=== PATIENT | female | born 1940 | race Caucasian/White ===

== ENCOUNTER 2019-08-27 10:38 | Outpatient (CLI) | payer MEDICARE, SELFPAY ==
--- NOTE | 2019-08-27 10:48 | DI.RAD_ITS ---
EXAM: XR FOOT RT COMPLETE INDICATION: FOOT HEEL PAIN [id number]. COMPARISON: No exams were available for comparison TECHNIQUE: 2D digital imaging was performed. FINDINGS: Three views were obtained. There deformity of the base of the 5th metatarsal consistent with partial ly healed or unhealed fracture. Please correlate clinically. There are minimal degenerative changes of the joints of the ankle midfoot and forefoot. No other significant abnormality seen. IMPRESSION:
--- NOTE | 2019-08-27 10:49 | DI.RAD_ITS ---
EXAM: XR WRIST RT COMPLETE INDICATION: WRIST JOINT PAIN [id number]. COMPARISON: No exams were available for comparison TECHNIQUE: 2D digital imaging was performed. FINDINGS: Three views were obtained. There is marked degenerative change at the greater multangular 1st metaca rpal joint. 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 Small degenerative c ysts are noted in the navicular and lunate. No other significant bony abnormality seen. IMPRESSION:
== END 2019-08-27 10:58 ==
PROVIDERS: PCP Family Medicine; Visit Provider Family Medicine
DX: M79.671 Pain in right foot (principal); M19.071 Primary osteoarthritis, right ankle and foot; M20.5X1 Other deformities of toe(s) (acquired), right foot; M25.531 Pain in right wrist; M19.031 Primary osteoarthritis, right wrist
CPT/HCPCS: 73110; 73630

== ENCOUNTER 2019-08-27 13:58 | Emergency (ER) | payer MEDICARE, SELFPAY ==
[2019-08-27 14:01] VITALS: BP 128/73; PULSE 100; RESP 16; TEMP 36.7; O2SAT 98
--- NOTE | 2019-08-27 14:19 | ED.GENADUL_ITS ---
Discharge Plan Disposition Patient Disposition: HOME Condition: Stable Discharge Details Chief Complaint: Orthopedic Clinical Impression: Fracture of fifth metatarsal bone of right foot Primary Care Provider: Hilario Fisher ED Provider: Prosper Cardoso Home Meds and New Rx's Prescriptions: Continued lisinopril 20 MG tablet 20 mg PO DAILY RF: 0 bpflvsyc-zrf-DY-lycopen-lutein [Centrum Silver] 1 EACH tablet 1 ea PO DAILY RF: 0 omega-3 fatty acids-fish oil [One-Per-Day [place]-3] 1 EACH capsule,delayed release(DR/EC) 1 ea PO DAILY RF: 0 naproxen 500 MG tablet 500 mg PO Q12H PRN RF: 0 Discharge Instructions Additional Instructions: Please follow-up with Luisito Woo in clinic for recheck in 1 to 2 weeks time. Call for an appointment. May remove the walking boot while in bed or for bathing. Wear when out of bed and upright. Return for worsening discomfort or any other acute concerns. May continue naproxen for pain. May use Tylenol if needed for breakthrough pain. Medical Decision Making 79-year-old female referred by outpatient clinic after she had an injury to her right foot yesterday and outpatient x-ray revealed deformity of the base of the 5th metatarsal consistent with partially healed or unhealed fracture. Will place an equalizer walking boot. She may follow-up with Ms. Luisito Woo in clinic for recheck. She is stable for discharge at this time. HPI General Mode of arrival: ambulatory . Date/Time Provider Initiated Documentation: 08/27/19 14:15 . Limitations to Documentation: no limitations . Information obtained by: patient . History of Present Illness 79 year old F presents to the emergency department with the chief complaint of Right foot pain after stepping off stool yesterday. Positive x-ray, described as mild, and is localized to the right and lower extremity. Patient reports no radiation. Patient started experiencing this hour(s) and it has been constant. Rest improves symptom(s), Movement worsens symptoms . Patient notes no other symp toms.. Patient did receive the following treatments prior to arrival, none Related Data Home Medications Medication Instructions Recorded Confirmed lisinopril 20 mg PO DAILY tab-cap 06/24/15 01/27/16 firfkdud-nwv-DR-lycopen-lutein 1 ea PO DAILY 06/24/15 01/27/16 [Centrum Silver] naproxen 500 mg PO Q12H PRN tab-cap 06/24/15 01/27/16 omega-3 fatty acids-fish oil 1 ea PO DAILY 06/24/15 01/27/16 [One-Per-Day [place]-3] Allergies Allergy/AdvReac Type Severity Reaction Status Date / Time Penicillins Allergy Intermediate Unverified 03/25/18 10:55 doxycycline monohydrate Allergy HIVES Unverified 03/25/18 10:55 [From Vibramycin] lactose AdvReac Mild GI upset Unverified 03/25/18 10:55 General Stated Complaint: Orthopedic SEBASTIAN: 4 Review of Systems Review of Systems Narrative: No other injury. Denies numbness or tingling. PFSH Social History Smoking/Tobacco Use Status: Never Drug use: Never Do you feel safe at home: Yes Do you feel safe in your relationship?: Yes Exam Narrative Exam Narrative: GEN: awake, alert, oriented 3. Pleasant, well groomed, interactive. HEAD: Normocephalic, atraumatic EXT: Full ROM, minimal tenderness right lateral foot. No significant ecchymosis. Neuro: Grossly normal neurologic exam, conversant, interactive. Psych: Speech fluent, thoughts congruent, affect normal Course Vital Signs Vital signs: Vital Signs Temperature 36.7 C 08/27/19 14:01 Pulse 100 H 08/27/19 14:01 Respiratory Rate 16 08/27/19 14:01 Blood Pressure 128/73 08/27/19 14:01 Pulse Oximetry 98 08/27/19 14:01 Temperature 36.7 C 08/27/19 14:01 Pulse 100 H 08/27/19 14:01 Respiratory Rate 16 08/27/19 14:01 Respiratory Effort Non-Labored 08/27/19 14:05 Blood Pressure 128/73 08/27/19 14:01 Blood Pressure Position Sitting 08/27/19 14:01 Pulse Oximetry 98 08/27/19 14:01 Oxygen Delivery Method Room Air 08/27/19 14:01 Oxygen Flow Rate 0 08/27/19 14:01 Pain Level 6 08/27/19 14:07
[2019-08-27 14:50] VITALS: BP 128/73; PULSE 100; RESP 16; TEMP 36.7; O2SAT 98
== END 2019-08-27 14:54 | disposition home or self-care (01) ==
LOC: ER 14:49
PROVIDERS: Emergency Provider Emergency Medicine; PCP Family Medicine
DX: S92.351A Displaced fracture of fifth metatarsal bone, right foot, initial encounter for closed fracture (principal); W01.0XXA Fall on same level from slipping, tripping and stumbling without subsequent striking against object, initial encounter; I10 Essential (primary) hypertension; M79.671 Pain in right foot; M19.071 Primary osteoarthritis, right ankle and foot; M20.5X1 Other deformities of toe(s) (acquired), right foot; M25.531 Pain in right wrist; M19.031 Primary osteoarthritis, right wrist
CPT/HCPCS: 29515; 99283; 73110; 73630; 99282; E0114; L4361

== ENCOUNTER 2019-09-13 21:24 | Inpatient (IN) | payer MEDICARE, SELFPAY ==
[2019-09-13] VITALS (10 sets, daily range): BP systolic 72–136; BP diastolic 40–79; PULSE 80–121; RESP 18–29; TEMP 38; O2SAT 94–98
--- NOTE | 2019-09-13 21:32 | DI.CT_ITS ---
EXAM: CT CHEST PE ABD PELVIS W CLINICAL HISTORY: right lower back/abd pain. TECHNIQUE: The examination was carried out according to the usual protocol with intravenous administ ration of 100 cc of Omnipaque 350.CT angiography was performed with multi slice acquisition and 3D re construction. COMPARISON: No exams were available for Comparison FINDINGS:: PE CHEST: No central pulmonary emboli are demonstrated with note made of motion artifacts limiting exclusion of peripheral pulmonary emboli. There is no evidence of a central or saddle embo teresa. There is no evidence of central lobar occlusive emboli. Segmental emboli cannot be entirely exc luded. There is no evidence of an aortic aneurysm or aortic dissection. No evidence of reflux of co ntrast material into the vena cava or hepatic veins to suggest right heart strain or pulmonary hypert ension. No pulmonary infiltrates are identified. Heterogeneous attenuation of pulmonary parenchyma is noted consistent with air trapping and underlying small airway disease. Note is also made of minim al bibasilar atelectasis. There is no evidence of a pneumothorax or pleural effusion. The heart is not enlarged. Calcification is noted in the mitral valve annulus. Also coronary artery calcification is seen. No evidence of lymphadenopathy. There is no acute bony abnormality. Soft tissues are unrem arkable. ABDOMEN AND PELVIC: Small calcifications in the liver would be consistent with old healed granulomato us disease. The liver is otherwise unremarkable. The gallbladder is normal. There are no stones. Mil d pancreatic atrophy is identified. Note is made of calcifications in the spleen consistent with old healed granulomatous disease. Adrenals are normal. Multiple cysts are identified in the right and left kidney. There are fluid-filled loops of small bowel with air fluid levels. There is mild bowel wall thickening. There is no evidence of obstruction. The findings may represent mild enteritis. Th ere is no evidence of an acute appendix. There is no evidence of free air or free fluid in the intra peritoneal space. There are mild atherosclerotic changes involving the aorta without evidence of aneu rysm. No acute bony abnormality is seen. There is no lymphadenopathy. Bladder wall thickening is id entified and is likely on the basis of suboptimal distension. Patient is status post hysterectomy. 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 The extr a-abdominal soft tissues appear unremarkable. IMPRESSION: PE CHEST: There is no evidence of pulmonary embolic disease. The appearance of the pulmonary parenchy ma is consistent with air trapping and small airway disease. ABDOMEN AND PELVIS: Findings suggesting the possibility of acute enteritis.
--- NOTE | 2019-09-13 21:36 | ED.GENADUL_ITS ---
Discharge Plan Disposition Patient Disposition: [facility] INPATIENT Condition: Stable Discharge Details Chief Complaint: Nk/Back Pain Clinical Impression: Enteritis, Dehydration, Sepsis, Right flank pain Primary Care Provider: Hilario Fisher ED Provider: Oneil Rojas Home Meds and New Rx's Prescriptions: No Action lisinopril 20 MG tablet 20 mg PO DAILY RF: 0 Centrum Silver 1 EACH tablet 1 ea PO DAILY RF: 0 One-Per-Day [place]-3 1 EACH capsule,delayed release(DR/EC) 1 ea PO DAILY RF: 0 naproxen 500 MG tablet 500 mg PO Q12H PRN RF: 0 azithromycin 250 mg Tablet 0 PO .COMPLEX RF: 0 Medical Decision Making This is an 79-year-old female with no significant past medical history except for recently fractured right foot, currently using a walking boot, as well as clinically treated pneumonia currently on azithromycin. She presents today for right lower flank and back pain. Symptoms began yesterday morning at 4 AM. She describes the pain is relatively sudden onset, achy stabbing in nature. No chest or abdominal pain otherwise. No neurovascular complaints, no clinical complaints or exam findings suggestive of cauda equina syndrome or other abnormalities. Exam is notably unremarkable however she is significantly tachycardic in the 120s. This certainly concerning in conjunction with her relatively undifferentiated exam findings. Differential is broad but includes urinary tract infection, pyelonephritis, kidney stone. However with her tachycardia and her suspected clinical pneumonia I am also concerned for potential PE versus dissection as she has been in a walking boot, and had a fracture. We will perform laboratory work-up evaluate for cardiac etiology, get a CT scan of the chest and abdomen, and reassess. We will gently rehydrate as well. Additionally the patient is febrile, certainly increasing the concern for potential infectious etiology. 1:43 AM Influenza negative, troponin normal, urinalysis is positive for nitrites, trace blood, however cell count is notably benign. TSH and lipase normal, proBNP normal. Electrolytes unremarkable. Mild white count 12.51, mildly elevated lactate at 1.5. CT PE study shows no evidence of PE or pneumonia. CT of the abdomen pelvis shows no signs of kidney stones, it does show notable enteritis, in conjunction with mild fat stranding. Slightly more concerning clinical picture of CT enteritis. After fluid bolus the patient's heart rate has notably improved from the 120s to low 100s. However with the patient's age, laboratory risk factors, persistent mild tachycardia, fever, and clinical and radiographic evidence of notable enteritis I do feel that patient would be best suited for admission. Because of her antibiotic allergies we will use Levaquin and Flagyl for treatment of this enteritis, which will also cover any significant urinary abnormality. I discussed this with the family and they are in agreement with the plan. Additionally the case was discussed with the hospitalist Dr. Agarwal, he agrees with the assessment and plan. Patient will be admitted. I have extensively reviewed the treatment plan with the patient. I have addressed all patient concerns at this time. I have also discussed the plan with the admitting physician and they agree with the current assessment and plan and have agreed to assume responsibility for the patient. All parties demonstrate verbal understanding and agreement with our assessment and plan at this time. FINDINGS: Pulmonary arteries: Motion artifact limits this study and the results are insufficient for definitive exclusion of peripheral pulmonary emboli beyond the first and second order pulmonary arterial branches. No central or saddle emboli noted. No evidence of central lobar occlusive emboli. Segmental emboli cannot be ruled out. No definitive pulmonary emboli identified. Aorta: No evidence of aortic dissection or aneurysmal dilatation. Inferior vena cava: No evidence of reflux of contrast into the inferior vena cava or hepatic veins to suggest right heart strain or pulmonary hypertension. Lungs: There is heterogeneous attenuation of the pulmonary parenchyma, consistent with air trapping from underlying small airways disease. There is minimal bibasilar atelectasis. Pleural space: There is no evidence of pneumothorax. There are no pleural effusions present. Heart: There is calcification of the cardiac mitral valve annulus. There is mild atherosclerotic calcification of the coronary arteries. The heart is mildly enlarged. Lymph nodes: Unremarkable. No enlarged lymph nodes. Bones/joints: The skeletal structures and soft tissues show no evidence of fracture or other acute processes. Mild degenerative changes of the thoracic spine. Soft tissues: The soft tissues of the extrathoracic region are unremarkable. Other findings: Please see CT of the abdomen and pelvis. IMPRESSION: 1. There is heterogeneous attenuation of the pulmonary parenchyma, consistent with air trapping from underlying small airways disease. 2. No evidence of pulmonary embolism FINDINGS: Liver: Small calcification seen within the liver consistent with old granulomatous exposure. There are otherwise no focal liver lesions present. Gallbladder and bile ducts: Normal. No calcified stones. No ductal dilation. Pancreas: Moderate pancreatic atrophy present. No evidence of pancreatic masses. Spleen: Calcifications within the splenic parenchyma consistent with old granulomatous exposure. Spleen is otherwise normal. Adrenals: The adrenal glands are normal. Kidneys and ureters: Probable simple cysts seen within the left and right kidney. Stomach and bowel: There are fluid-filled loops of small bowel with air-fluid levels. There is mild bowel wall thickening and inflammatory changes. No evidence of obstruction. Findings are consistent with mild acute enteritis. Appendix: A normal appendix is identified. There is no evidence of distention or periappendiceal inflammation to suggest appendicitis. Intraperitoneal space: Unremarkable. No free air. No significant fluid collection. Vasculature: The aorta demonstrates mild atherosclerotic calcification. The abdominal aorta and iliac arteries are tortuous which may represent long-standing hypertension.The skeletal structures and soft tissues show no evidence of fracture or other acute processes. Lymph nodes: Unremarkable. No enlarged lymph nodes. Bladder: There is nonspecific bladder wall thickening. This may be related to incomplete bladder filling. Reproductive: There has been a hysterectomy. No adnexal cysts or masses are identified. Bones/joints: The lumbar spine demonstrates moderate degenerative changes. There are moderate degenerative changes of the sacroiliac joints. There are mild degenerative changes of the hip joints. Soft tissues: The extra-abdominal soft tissues are normal. IMPRESSION: Findings are consistent with mild acute enteritis. Thank you for allowing us to participate in the care of your patient. Dictated and Authenticated by: Jayro Galan MD 09/14/2019 12:35 AM Eastern Time ([place] & [place]) EKG 21: 45 Rate 118, interpretation is atrial flutter, however review of EKG appears to demonstrate sinus tachycardia rather than a flutter. NE interval appears to be slightly prolonged. QT 356, QRS 94. No significant ST elevations or depression, no evidence of STEMI. Inverted T waves are present in lead III. Nonspecific T wave flattening in aVF. HPI General Date/Time Provider Initiated Documentation: 09/13/19 21:35 . HPI Narrative: This is an 79-year-old female with no significant past medical history aside for a recent fracture of her right lower foot a few weeks ago, she has been in a walking boot for the past 2 weeks because of this. Additionally she was recently prescribed azithromycin within the last week for treatment of suspected clinical pneumonia in the right lower lung field. She presents today for evaluation of right lower back/flank pain. Patient states that the pain began at 4 AM yesterday morning she developed relatively sudden sharp achiness in the right flank and right lower abdomen. She has had no associated vomiting or diarrhea. She denies any urinary symptoms of hematuria, frequency, or dysuria. She denies any history of kidney stones. She denies any complaint of vaginal discharge, saddle anesthesia, numbness or tingling in the groin, radiation to her legs, bowel or bladder incontinence. She does admit to a productive cough, as well as minimal shortness of breath but she denies any chest tightness, tearing sensation in her chest, or other complaints. She denies any history of cardiac disease. She denies any history of PE. She denies any estrogen use, recent foreign travel or long trips. No other complaints. No other modifying factors. Of note she has been taking the azithromycin for treatment of a clinically diagnosed pneumonia few days ago. Related Data Home Medications Medication Instructions Recorded Confirmed Centrum Silver 1 ea PO DAILY 06/24/15 09/13/19 One-Per-Day [place]-3 1 ea PO DAILY 06/24/15 09/13/19 lisinopril 20 mg PO DAILY tab-cap 06/24/15 09/13/19 naproxen 500 mg PO Q12H PRN tab-cap 06/24/15 09/13/19 azithromycin 0 PO .COMPLEX 09/14/19 Allergies Allergy/AdvReac Type Severity Reaction Status Date / Time Penicillins Allergy Intermediate Unverified 03/25/18 10:55 doxycycline monohydrate Allergy HIVES Unverified 03/25/18 10:55 [From Vibramycin] lactose AdvReac Mild GI upset Unverified 03/25/18 10:55 General SEBASTIAN: 4 Review of Systems Review of Systems ROS Unobtainable: All systems reviewed & are unremarkable except as noted in HPI and below PFSH Social History Smoking/Tobacco Use Status: Never Alcohol Intake: never Drug use: Never Do you feel safe at home: Yes Do you feel safe in your relationship?: Yes Exam Narrative Exam Narrative: 1.Const: Well-nourished, Well-developed, appearing stated age 2.Eyes: PERRL, no conjunctival injection, and symmetrical lids. 3.ENT: Atraumatic external nose and ears. Moist MM. Neck: Symmetric, trachea midline, No thyromegaly. 4.CVS: +S1/S2, No murmurs or gallops. Peripheral pulses 2+ and equal in all extremities. Brisk capillary refill in all extremities. 5.RESP: Unlabored respiratory effort. Clear to auscultation bilaterally. No wheezes rales or rhonchi 6.GI: Soft, Nontender/Nondistended, No hepatosplenomegaly. No guarding or rebound. Minimal tenderness over the right flank, 7.MSK: Normocephalic/Atraumatic, Extremities w/o deformity or ttp No cyanosis or clubbing, Normal movement of all extremities. No midline tenderness to palpation over the CTLS spine. Normal ROM in flexion, extension, side bend, and rotation. Patient has +5 out of 5 strength in the lower extremities in dorsiflexion and plantarflexion, knee flexion and extension, hip flexion and extension. There is +2 over 2 dorsalis pedis pulses bilaterally. There is normal sensation to the skin with light touch at the foot, knee, and hip. Normal saddle sensation. Good sensation over the deep sural nerve area bilaterally. Rectal exam demonstrated normal rectal tone, normal perirectal sensation. Reflexes normal. +5 out of 5 strength in the medial, ulnar, radial nerve distribution bilaterally in the hands as well as intact light touch sensation to these dermatomes on the hands. No tenderness over the previously fractured foot bones. 8.Skin: Warm, Dry. No rashes or lesions. 9.Neuro: cloth roll winder II-XII grossly intact. Sensation grossly intact, no focal neurologic deficits. 10.Psych: (AAO) x3. Appropriate mood and affect Course Lab/Test Results Lab/Test Results: 09/13/19 21:32 Blood Blood Culture - Pending 09/13/19 21:32 Blood Blood Culture - Pending
[2019-09-13] MEDS: Ondansetron 4 MG/2 ML VIAL IVP (22:03)
[2019-09-13] MEDS: Acetaminophen 500 MG TAB 1000 MG PO (22:03)
[2019-09-13] MEDS: Normal Saline 1,000 ML 1000 ML IV (22:04)
--- NOTE | 2019-09-13 22:05 | NUR.NOTE ---
#20 LAC, labs drawn. NS infusing. Med with zofran and tylenol a/o. Pt declined morphine that'll send me to the [place]. states pain in foot has been relieved with tylenol.
[2019-09-13 22:25] LABS: Lactate 1.5 mmol/L (0.6-1.4)
[2019-09-13 22:29] LABS: Abs Immature Grans 0.03 k/cumm (0.0-0.09); Absolute Basophil Count 0.03 k/cumm (0.0-0.2); Absolute Eosinophil Count 0.09 k/cumm (0.0-0.7); Absolute Lymphocyte Count 1.55 k/cumm (1.2-3.4); Absolute Monocyte Count 1.25 k/cumm (0.11-0.7); Absolute Neutrophil Count 9.57 k/cumm (1.2-6.7); Basophils % 0.2; Eosinophils % 0.7; HCT 37.4 % (36.0-46.0); HGB 12.3 g/dL (12.0-15.5); Immature Grans % 0.2; Lymphocytes % 12.4; Mean Corp. HGB Concentration 32.9 g/dL (32.0-36.0); Mean Corpuscular Hemoglobin 29.9 pg (27.0-33.0); Mean Corpuscular Volume 90.8 fL (80-95); Mean Platelet Volume 9.7 fL (8.0-11.0); Neutrophils % 76.5; Platelet Count 357 x1000/uL (130-400); RBC 4.12 m/cumm (4.00-5.20); RBC Distribution Width 12.3 % (11.7-14.6); White Blood Cell Count 12.51 k/cumm (4.4-10.8)
[2019-09-13 22:40] LABS: PTT Activated 30.3 sec (21.0-31.4); Prothrombin Time 10.4 sec (9.3-11.0)
[2019-09-13 22:49] LABS: ALT 17 U/L (14-59); AST 12 U/L (15-37); Albumin 3.3 g/dL (3.4-5.0); Alkaline Phosphatase 86 U/L (46-116); BUN 28 mg/dL (7-18); Bilirubin, Total 0.5 mg/dL (0.2-1.0); CREATININE 1.14 mg/dL (0.55-1.02); Calcium 9.2 mg/dL (8.5-10.1); Chloride 102 mmol/L (98-107); Estimated GFR 45.75 (mL/min/1.73m2); Glucose 125 mg/dL (70-100); Lipase 106 U/L (73-393); NT-proBNP 206 pg/mL; Potassium 5.1 mmol/L (3.5-5.1); Sodium 139 mmol/L (136-145); TSH (W/Ref FT4) 2.05 uIU/mL (0.36-3.74); Total Protein 7.8 g/dL (6.4-8.2)
[2019-09-13 22:51] LABS: Troponin I < 0.05 ng/mL (0.00-0.06)
[2019-09-13 22:51] LABS: Bilirubin Negative (Negative); Blood Trace-intact (Negative); Clarity Clear (Clear); Glucose Negative (Negative); Ketones Negative (Negative); Leukocyte Esterase Negative (Negative); Nitrite Positive (Negative); Urobilinogen 0.2 EU/dL (Up TO 0.2); pH 5.5 (5-8)
--- NOTE | 2019-09-13 22:51 | NUR.NOTE ---
BIBA from home with c/o right low back pain that woke her at 0400. non-radiating. reports as burning pain. Recent hx of right foot fx, and dx with PNA on 09/11, taking azithromycin. pt reports temp to 100.0 at home, no tylenol or motrin. ST on monitor 120's. denies CP, SOB. pt reports abd cramping. denies N/V. #20 LAC, labs drawn. Straight cath for urine spec, approx 250mL out, pt abel well.
[2019-09-13 23:04] LABS: Epithelial Cells Negative HPF (Negative); RBC 0-2 (0-2); WBC 0-2 HPF (0-5)
[2019-09-13 23:05] LABS: Bacteria Many HPF (Negative); C & S Indicated? C&S Done As Ordered; Casts Negative LPF (Negative); Crystals Negative HPF (Negative); Mucus Negative (Negative)
[2019-09-14] VITALS (20 sets, daily range): BP systolic 105–159; BP diastolic 60–99; PULSE 82–116; RESP 16–27; TEMP 36.5–37.1; O2SAT 94–99
--- NOTE | 2019-09-14 00:36 | DI.VRAD_ITS ---
Addendum created by Jayro Galan MD on 09/14/2019 12:55:24 AM EDT THIS REPORT CONTAINS FINDINGS THAT MAY BE CRITICAL TO PATIENT CARE. The findings were verbally communicated via telephone conference with BIJU JO at 12:55 AM EDT on 09/14/2019. The findings were acknowledged and understood. Initial report created on 09/14/2019 12:35:56 AM EDT PROCEDURE INFORMATION: Exam: CT Angiography Chest With Contrast Exam date and time: 09/13/2019 11:39 PM Clinical history: 79 years old, female; Abdominal pain; Flank; Right TECHNIQUE: Imaging protocol: Computed tomographic angiography of the chest with intravenous contrast. COMPARISON: CR CHEST 2 VIEWS PA,LAT 05/27/2013 9:31 AM FINDINGS: Pulmonary arteries: Motion artifact limits this study and the results are insufficient for definitive exclusion of peripheral pulmonary emboli beyond the first and second order pulmonary arterial branches. No central or saddle emboli noted. No evidence of central lobar occlusive emboli. Segmental emboli cannot be ruled out. No definitive pulmonary emboli identified. Aorta: No evidence of aortic dissection or aneurysmal dilatation. Inferior vena cava: No evidence of reflux of contrast into the inferior vena cava or hepatic veins to suggest right heart strain or pulmonary hypertension. Lungs: There is heterogeneous attenuation of the pulmonary parenchyma, consistent with air trapping from underlying small airways disease. There is minimal bibasilar atelectasis. Pleural space: There is no evidence of pneumothorax. There are no pleural effusions present. Heart: There is calcification of the cardiac mitral valve annulus. There is mild atherosclerotic calcification of the coronary arteries. The heart is mildly enlarged. Lymph nodes: Unremarkable. No enlarged lymph nodes. Bones/joints: The skeletal structures and soft tissues show no evidence of fracture or other acute processes. Mild degenerative changes of the thoracic spine. Soft tissues: The soft tissues of the extrathoracic region are unremarkable. Other findings: Please see CT of the abdomen and pelvis. IMPRESSION: 1. There is heterogeneous attenuation of the pulmonary parenchyma, consistent with air trapping from underlying small airways disease. 2. No evidence of pulmonary embolism PROCEDURE INFORMATION: Exam: CT Abdomen And Pelvis With Contrast Exam date and time: 09/13/2019 11:39 PM Clinical history: 79 years old, female; Abdominal pain; Flank; Right TECHNIQUE: Imaging protocol: Computed tomography of the abdomen and pelvis with intravenous contrast. Contrast material: OMN 350; Contrast volume: 100 ml; Contrast route: L AC; COMPARISON: CR CHEST 2 VIEWS PA,LAT 05/27/2013 9:31 AM FINDINGS: Liver: Small calcification seen within the liver consistent with old granulomatous exposure. There are otherwise no focal liver lesions present. Gallbladder and bile ducts: Normal. No calcified stones. No ductal dilation. Pancreas: Moderate pancreatic atrophy present. No evidence of pancreatic masses. Spleen: Calcifications within the splenic parenchyma consistent with old granulomatous exposure. Spleen is otherwise normal. Adrenals: The adrenal glands are normal. Kidneys and ureters: Probable simple cysts seen within the left and right kidney. Stomach and bowel: There are fluid-filled loops of small bowel with air-fluid levels. There is mild bowel wall thickening and inflammatory changes. No evidence of obstruction. Findings are consistent with mild acute enteritis. Appendix: A normal appendix is identified. There is no evidence of distention or periappendiceal inflammation to suggest appendicitis. Intraperitoneal space: Unremarkable. No free air. No significant fluid collection. Vasculature: The aorta demonstrates mild atherosclerotic calcification. The abdominal aorta and iliac arteries are tortuous which may represent long-standing hypertension.The skeletal structures and soft tissues show no evidence of fracture or other acute processes. Lymph nodes: Unremarkable. No enlarged lymph nodes. Bladder: There is nonspecific bladder wall thickening. This may be related to incomplete bladder filling. Reproductive: There has been a hysterectomy. No adnexal cysts or masses are identified. Bones/joints: The lumbar spine demonstrates moderate degenerative changes. There are moderate degenerative changes of the sacroiliac joints. There are mild degenerative changes of the hip joints. Soft tissues: The extra-abdominal soft tissues are normal. IMPRESSION: Findings are consistent with mild acute enteritis. Dictated and Authenticated by: Jayro Galan MD. Ordering:PITA Riggs MD
[2019-09-14] MEDS: Lidocaine 5% Patch 1 PATCH TP ×2 (00:42→18:18)
[2019-09-14] MEDS: levoFLOXacin 750 MG/150 ML BAG 100 MG IVPB (00:42)
[2019-09-14] MEDS: Normal Saline 1,000 ML 1000 ML IV (00:45)
[2019-09-14 01:05] LABS: Troponin I < 0.05 ng/mL (0.00-0.06)
--- NOTE | 2019-09-14 01:07 | HPE_ITS ---
Date of service: 09/14/19 Time of Service: 01:08 Assessment and Plan Assessment and plan (1) Right low back pain: Start date: 09/13/19 Status: Acute Assessment and plan: This is a generally healthy 79-year-old lady who recently fractured her right foot and now presents with right low back pain of acute onset needing help moving around at home. She is a right hip pain but on exam this was present. She has a fever and white count with only imaging done in the ED of the chest and abdomen revealing mild enteritis. She was covered with Levaquin because of her urine also possibly an infected and urine culture is pending. He was also given a dose of Flagyl which is not needed with her review of history and imaging. She may not need any antibiotics at all once further evaluation is done with imaging of her hip and back to be performed in the morning. Her pain was not associate with her abdomen or flank. She had no significant presentation of GI or complaints. Qualifiers: Chronicity: acute Sciatica presence: without sciatica Qualified Code(s): M54.5 - Low back pain (2) Right hip pain: Start date: 09/13/19 Status: Acute Assessment and plan: The patient's hip pain was not addressed in the ED because of her complaints of back pain and concentration for possible infectious etiologies diverting the ED physician's attention. This will be imaged in the morning and evaluated by PT. There is no injury but she did have an abnormal gait with a recent right foot fracture and walking boot. (3) Dehydration: Start date: 09/13/19 Status: Acute Assessment and plan: Patient was tachycardic in the ED with mild elevation of her creatinine and she did respond to IV hydration which will be continued. May be secondary to stress from her back pain. (4) Enteritis: Start date: 09/13/19 Status: Acute Assessment and plan: On CT scan of the abdomen the patient did have mild enteritis this may not be contributing to her fever, white blood cell count elevation or presentation. She was given Levaquin will cover possible UTI and question of her recent pneumonia though this was a clinical diagnosis because of her back pain. She had less severe back pain at the time she was seen by her outpatient physician and this did worsen just prior to presentation. He will be on bowel rest with IV hydration this be further evaluated if she progresses with abdominal symptoms. 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 She has had a right kn ee replaced recently and also more recently fractured her right foot by miss stepping on some stairs in the barn. This occurred several weeks ago and she has been walking in a walking boot outside but has been weaned off of this in the house. Over the last day prior to admission she had a sudden onset of right low back pain and with further questioning is hurting over her right hip with movement. We should return to the ED she was mostly in pain with tachycardia and appeared to be slightly dehydrated also had a low-grade fever. Evaluation did not include x-rays of her back or hip but CT scan of the abdomen and chest did not reveal any pneumonia, pulmonary embolus or significant abdominal findings other than mild enteritis. She was started on Levaquin and given 1 dose of Flagyl with a question of enteritis being more significant with her fever and elevated white count. She is allergic to doxycycline and Bactrim would be contraindicated with her lisinopril. She did not have any diarrhea or symptoms of enteritis other than mild nausea which may have been associate with her pain. When I interviewed the patient was quite talkative but had no other new focalizing complaints other than her back pain. In the ED she did have tachycardia which resolved with pain control and IV hydration and she had a mild fever with elevated white blood cell count. She also had an elevated lactate. She was admitted for IV Levaquin and further evaluation for infectious etiologies as well as further evaluation of her acute back pain which was sudden onset but may be associate with a recent fractured foot and change in gait with her previous right TKA. Review of Systems Review of Systems Narrative: 13 point review of systems otherwise unrevealing or stable. 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 [facility] Social History Smoking/Tobacco Use Status: Never Alcohol Intake: never Drug use: Never Do you feel safe at home: Yes Do you feel safe in your relationship?: Yes Meds Home Medications and Allergies Home Medications Medication Instructions Recorded Confirmed Type Centrum Silver 1 ea PO DAILY 06/24/15 09/13/19 History One-Per-Day [place]-3 1 ea PO DAILY 06/24/15 09/13/19 History lisinopril 20 mg PO DAILY tab-cap 06/24/15 09/13/19 History naproxen 500 mg PO Q12H PRN tab-cap 06/24/15 09/13/19 History azithromycin 0 PO .COMPLEX 09/14/19 History Allergies Allergy/AdvReac Type Severity Reaction Status Date / Time Penicillins Allergy Intermediate Unverified 03/25/18 10:55 doxycycline monohydrate Allergy HIVES Unverified 03/25/18 10:55 [From Vibramycin] lactose AdvReac Mild GI upset Unverified 03/25/18 10:55 Exam Narrative Exam Narrative: General: Obese, very talkative and alert and oriented x3. She is in no acute distress. She does have some distress when trying to move such as set up in bed. HEENT: Normocephalic with eyes normal revealing pupils equal and reactive light symmetrically and sclera anicteric. Extraocular movement intact. Oropharynx with slightly dry oral mucosa. Neck: Supple without JVD. Lungs: Clear to auscultation percussion. Heart: Regular rate and rhythm with no murmurs appreciated. Breast: Exam deferred. Back: Palpation of the right lower back increased muscle spasm and tenderness of the spine as well as the SI joint area no fluctuance, increased warmth to touch or erythema. Marked decreased range of motion of her back with stooped posture. No true CVA tenderness. Abdomen: Obese contour, soft and nontender to palpation with no palpable hepatosplenomegaly. Bowel sounds positive. Genitalia/Rectal: Exam deferred. Extremities: Obese with nonpitting edema, diffuse osteophytic changes with well- healed scar over the extensor surface of her right knee, right foot without swelling or focal tenderness, right hip with tenderness to any rotational movement and less so to flexion. No clubbing or cyanosis. Peripheral pulses decreased but intact. Neuro: Cranial nerves II through XII grossly intact, no focalizing motor de ficits. Skin: Pale, warm and dry. Psych: Slightly anxious with pressured speech but normal affect with normal variation in good eye contact. Memory appears intact. Results Imaging Imaging Studies: Exam(s) Addendum created by Jayro Galan MD on 09/14/2019 12:55:24 AM EDT THIS REPORT CONTAINS FINDINGS THAT MAY BE CRITICAL TO PATIENT CARE. The findings were verbally communicated via telephone conference with BIJU JO at 12:55 AM EDT on 09/14/2019. The findings were acknowledged and understood. Initial report created on 09/14/2019 12:35:56 AM EDT PROCEDURE INFORMATION: Exam: CT Angiography Chest With Contrast Exam date and time: 09/13/2019 11:39 PM Clinical history: 79 years old, female; Abdominal pain; Flank; Right TECHNIQUE: Imaging protocol: Computed tomographic angiography of the chest with intravenous contrast. COMPARISON: CR CHEST 2 VIEWS PA,LAT 05/27/2013 9:31 AM FINDINGS: Pulmonary arteries: Motion artifact limits this study and the results are insufficient for definitive exclusion of peripheral pulmonary emboli beyond the first and second order pulmonary arterial branches. No central or saddle emboli noted. No evidence of central lobar occlusive emboli. Segmental emboli cannot be ruled out. No definitive pulmonary emboli identified. Aorta: No evidence of aortic dissection or aneurysmal dilatation. Inferior vena cava: No evidence of reflux of contrast into the inferior vena cava or hepatic veins to suggest right heart strain or pulmonary hypertension. Lungs: There is heterogeneous attenuation of the pulmonary parenchyma, consistent with air trapping from underlying small airways disease. There is minimal bibasilar atelectasis. Pleural space: There is no evidence of pneumothorax. There are no pleural effusions present. Heart: There is calcification of the cardiac mitral valve annulus. There is mild atherosclerotic calcification of the coronary arteries. The heart is mildly enlarged. Lymph nodes: Unremarkable. No enlarged lymph nodes. Bones/joints: The skeletal structures and soft tissues show no evidence of fracture or other acute processes. Mild degenerative changes of the thoracic spine. Soft tissues: The soft tissues of the extrathoracic region are unremarkable. Other findings: Please see CT of the abdomen and pelvis. IMPRESSION: 1. There is heterogeneous attenuation of the pulmonary parenchyma, consistent with air trapping from underlying small airways disease. 2. No evidence of pulmonary embolism PROCEDURE INFORMATION: Exam: CT Abdomen And Pelvis With Contrast Exam date and time: 09/13/2019 11:39 PM Clinical history: 79 years old, female; Abdominal pain; Flank; Right TECHNIQUE: Imaging protocol: Computed tomography of the abdomen and pelvis with intravenous contrast. Contrast material: OMN 350; Contrast volume: 100 ml; Contrast route: L AC; COMPARISON: CR CHEST 2 VIEWS PA,LAT 05/27/2013 9:31 AM FINDINGS: Liver: Small calcification seen within the liver consistent with old granulomatous exposure. There are otherwise no focal liver lesions present. Gallbladder and bile ducts: Normal. No calcified stones. No ductal dilation. Pancreas: Moderate pancreatic atrophy present. No evidence of pancreatic masses. Spleen: Calcifications within the splenic parenchyma consistent with old granulomatous exposure. Spleen is otherwise normal. Adrenals: The adrenal glands are normal. Kidneys and ureters: Probable simple cysts seen within the left and right kidney. Stomach and bowel: There are fluid-filled loops of small bowel with air-fluid levels. There is mild bowel wall thickening and inflammatory changes. No evidence of obstruction. Findings are consistent with mild acute enteritis. Appendix: A normal appendix is identified. There is no evidence of distention or periappendiceal inflammation to suggest appendicitis. Intraperitoneal space: Unremarkable. No free air. No significant fluid collection. Vasculature: The aorta demonstrates mild atherosclerotic calcification. The abdominal aorta and iliac arteries are tortuous which may represent long-standing hypertension.The skeletal structures and soft tissues show no evidence of fracture or other acute processes. Lymph nodes: Unremarkable. No enlarged lymph nodes. Bladder: There is nonspecific bladder wall thickening. This may be related to incomplete bladder filling. Reproductive: There has been a hysterectomy. No adnexal cysts or masses are identified. Bones/joints: The lumbar spine demonstrates moderate degenerative changes. There are moderate degenerative changes of the sacroiliac joints. There are mild degenerative changes of the hip joints. Soft tissues: The extra-abdominal soft tissues are normal. IMPRESSION: Findings are consistent with mild acute enteritis. Dictated and Authenticated by: Jayro Galan MD Labs Result diagrams: 09/13/19 21:54 09/13/19 21:54 Labs: Laboratory Results - last 24 hr 09/13/19 09/13/19 09/13/19 21:54 21:54 21:54 WBC 12.51 H RBC 4.12 Hgb 12.3 Hct 37.4 MCV 90.8 MCH 29.9 MCHC 32.9 RDW 12.3 Plt Count 357 MPV 9.7 Immature Gran % 0.2 Neutrophils % 76.5 Lymphocytes % 12.4 Monocytes % 10.0 Eosinophils % 0.7 Basophils % 0.2 Absolute Neutrophils 9.57 H Absolute Lymphocytes 1.55 Absolute Monocytes 1.25 H Absolute Eosinophils 0.09 Absolute Basophils 0.03 PT INR APTT Sodium 139 Potassium 5.1 Chloride 102 Carbon Dioxide 28.0 Anion Gap 9.0 BUN 28 H Creatinine 1.14 H Estimated GFR/1.73 m2 45.75 Glucose 125 H Lactate 1.5 H Calcium 9.2 Total Bilirubin 0.5 AST 12 L ALT 17 Alkaline Phosphatase 86 Troponin I < 0.05 NT-Pro-B Natriuret Pep 206 Total Protein 7.8 Albumin 3.3 L Lipase 106 TSH 2.05 Urine Color Urine Clarity Urine pH Ur Specific [place] Urine Protein Urine Ketones Urine Blood Urine Nitrite Urine Bilirubin Urine Urobilinogen Ur Leukocyte Esterase Urine RBC Urine WBC Ur Epithelial Cells Urine Crystals Urine Bacteria Urine Casts Urine Mucus Ur Culture Indicated? Urine Glucose 09/13/19 09/13/19 09/14/19 21:54 22:45 00:30 WBC RBC Hgb Hct MCV MCH MCHC RDW Plt Count MPV Immature Gran % Neutrophils % Lymphocytes % Monocytes % Eosinophils % Basophils % Absolute Neutrophils Absolute Lymphocytes Absolute Monocytes Absolute Eosinophils Absolute Basophils PT 10.4 INR 1.0 APTT 30.3 Sodium Potassium Chloride Carbon Dioxide Anion Gap BUN Creatinine Estimated GFR/1.73 m2 Glucose Lactate Calcium Total Bilirubin AST ALT Alkaline Phosphatase Troponin I < 0.05 NT-Pro-B Natriuret Pep Total Protein Albumin Lipase TSH Urine Color Yellow Urine Clarity Clear Urine pH 5.5 Ur Specific [place] 1.020 Urine Protein Negative Urine Ketones Negative Urine Blood Trace-intact H Urine Nitrite Positive H Urine Bilirubin Negative Urine Urobilinogen 0.2 Ur Leukocyte Esterase Negative Urine RBC 0-2 Urine WBC 0-2 Ur Epithelial Cells Negative Urine Crystals Negative Urine Bacteria Many Urine Casts Negative Urine Mucus Negative Ur Culture Indicated? C&s done as ordered Urine Glucose Negative Last Vital Signs Temp 37.1 C 09/14/19 00:56 Pulse 107 H 09/14/19 00:56 Resp 20 09/14/19 00:56 BP 111/65 09/14/19 00:56 Pulse Ox 97 09/14/19 00:56
--- NOTE | 2019-09-14 01:25 | NUR.NOTE ---
IV removed. discharge instructions reviewed with verbal understanding. aware to f/u with pcp as needed. scripts given. Ambulated to exit with steady gait.
--- NOTE | 2019-09-14 01:46 | NUR.NOTE ---
Report to Radha in ICU. Aware pt has had levaquin and needs flagyl.
[2019-09-14] MEDS: Normal Saline 1,000 ML 150 ML IV ×2 (02:36→13:42)
[2019-09-14] MEDS: Heparin 5,000 UNITS/ML VIAL 5000 UNITS SC ×3 (02:51→22:26)
[2019-09-14] MEDS: metroNIDAZOLE 500 MG/100 ML BAG 100 MG IVPB (02:51)
[2019-09-14] MEDS: Omnipaque 350 MG/ML 100 ML BTL IJ (06:32)
[2019-09-14] MEDS: Lisinopril 20 MG TAB PO (07:58)
--- NOTE | 2019-09-14 08:00 | DI.RAD_ITS ---
EXAM: XR LUMBAR SPINE COMPLETE INDICATION: Progressive right low back pain. COMPARISON: No exams were available for comparison TECHNIQUE: 2D digital imaging was performed. FINDINGS: The vertebral bodies appear intact. Mild disc space narrowing is identified at L1-2 and L4-5. The po sterior elements appear intact. There are degenerative changes involving the facet joints. The sacrum and sacroiliac joints as visualized are intact. Incidental note is made of calcifications in the li nikolas and spleen consistent with old healed granulomatous disease. A dilated bladder contains contrast material secondary to a recent CT examination. IMPRESSION: Degenerative changes involving the lumbar spine as described above.
--- NOTE | 2019-09-14 08:00 | DI.RAD_ITS ---
EXAM: XR HIP RT COMPLETE AP PELVIS INDICATION: Right hip pain rotation, associated right low back. COMPARISON: XR LUMBAR SPINE COMPLETE from 09/14/2019 TECHNIQUE: 2D digital imaging was performed. FINDINGS: There is mild narrowing of the right hip joint. Minimal periarticular hypertrophic spurring is demons trated. Note is made of contrast material in the dilated bladder secondary to a recent CT examinatio n. IMPRESSION: Minimal right hip DJD is demonstrated.
--- NOTE | 2019-09-14 08:21 | PGE_ITS ---
Date of Service Date of service: 09/14/19 Time of Service: 16:04 Subjective Subjective Interval history since last seen: A little tender in her abdomen. Biggest complaint is R-sided back pain, lower, no radiation to back, but getting much better throughout the day today. Was able to walk with PT and a walker, but has not yet done stairs. Found to be retaining urine (>400 cc's) - sometimes has both fecal and urinary incontinence at home, and this, per patient, is not necessarily a new problem. MRI negative for any kind of chord compression. The most likely scenario is that the patient has a muscle spasm. She seems to be improving with toradol, which we will continue overnight. Plan is to discharge patient home tomorrow assuming she can walk on the stairs. Objective Objective Clinical Data: Abnormal lab results 09/13/19 09/13/19 09/13/19 Range/Units 21:54 21:54 21:54 WBC 12.51 H (4.4-10.8) k/cumm Absolute Neutrophils 9.57 H (1.2-6.7) k/cumm Absolute Monocytes 1.25 H (0.11-0.7) k/cumm BUN 28 H (7-18) mg/dL Creatinine 1.14 H (0.55-1.02) mg/dL Glucose 125 H (70-100) mg/dL Lactate 1.5 H (0.6-1.4) mmol/L AST 12 L (15-37) U/L Albumin 3.3 L (3.4-5.0) g/dL Urine Blood (Negative) Urine Nitrite (Negative) 09/13/19 Range/Units 22:45 WBC (4.4-10.8) k/cumm Absolute Neutrophils (1.2-6.7) k/cumm Absolute Monocytes (0.11-0.7) k/cumm BUN (7-18) mg/dL Creatinine (0.55-1.02) mg/dL Glucose (70-100) mg/dL Lactate (0.6-1.4) mmol/L AST (15-37) U/L Albumin (3.4-5.0) g/dL Urine Blood Trace-intact H (Negative) Urine Nitrite Positive H (Negative) Vital Signs Temperature 36.8 C 09/14/19 03:08 Temperature Source Temporal Artery Scan 09/14/19 03:08 Pulse 82 09/14/19 07:26 Pulse Rhythm Regular 09/14/19 08:06 Pulse 101 H 09/14/19 01:02 Respiratory Rate 20 09/14/19 03:08 Respiratory Effort Non-Labored 09/14/19 08:06 Respiratory Depth Normal 09/14/19 08:06 Respiratory Pattern Normal 09/14/19 08:06 Blood Pressure 133/74 09/14/19 07:26 Blood Pressure Mean 88 09/14/19 07:26 Blood Pressure Position Supine 09/14/19 03:08 Pulse Oximetry 99 09/14/19 07:24 Oxygen Delivery Method Room Air 09/14/19 03:08 Oxygen Flow Rate 0 09/14/19 03:08 Pain Level 8 09/14/19 08:06 Intake & Output 09/13/19 09/13/19 09/14/19 11:59 23:59 11:59 Intake Total 2250 / 2250 Output Total 700 / 700 Balance 1550 / 1550 Weight 89.7 kg 89.7 kg Intake: IV 2250 / 2250 Output: Urine 700 / 700 Other: Urine Color Yellow Urine Appearance Clear Urine Odor None Comment stress incontinent Laboratory Results WBC 12.51 k/cumm (4.4-10.8) H 09/13/19 21:54 RBC 4.12 m/cumm (4.00-5.20) 09/13/19 21:54 Hgb 12.3 g/dL (12.0-15.5) 09/13/19 21:54 Hct 37.4 % (36.0-46.0) 09/13/19 21:54 MCV 90.8 fL (80-95) 09/13/19 21:54 MCH 29.9 pg (27.0-33.0) 09/13/19 21:54 MCHC 32.9 g/dL (32.0-36.0) 09/13/19 21:54 RDW 12.3 % (11.7-14.6) 09/13/19 21:54 Plt Count 357 x1000/uL (130-400) 09/13/19 21:54 MPV 9.7 fL (8.0-11.0) 09/13/19 21:54 Immature Gran % 0.2 09/13/19 21:54 Neutrophils % 76.5 09/13/19 21:54 Lymphocytes % 12.4 09/13/19 21:54 Monocytes % 10.0 09/13/19 21:54 Eosinophils % 0.7 09/13/19 21:54 Basophils % 0.2 09/13/19 21:54 Absolute Neutrophils 9.57 k/cumm (1.2-6.7) H 09/13/19 21:54 Absolute Lymphocytes 1.55 k/cumm (1.2-3.4) 09/13/19 21:54 Absolute Monocytes 1.25 k/cumm (0.11-0.7) H 09/13/19 21:54 Absolute Eosinophils 0.09 k/cumm (0.0-0.7) 09/13/19 21:54 Absolute Basophils 0.03 k/cumm (0.0-0.2) 09/13/19 21:54 PT 10.4 sec (9.3-11.0) 09/13/19 21:54 INR 1.0 (0.9-1.1) 09/13/19 21:54 APTT 30.3 sec (21.0-31.4) 09/13/19 21:54 Sodium 139 mmol/L (136-145) 09/13/19 21:54 Potassium 5.1 mmol/L (3.5-5.1) 09/13/19 21:54 Chloride 102 mmol/L (98-107) 09/13/19 21:54 Carbon Dioxide 28.0 mmol/L (21.0-32.0) 09/13/19 21:54 Anion Gap 9.0 mmol/L (3-11) 09/13/19 21:54 BUN 28 mg/dL (7-18) H 09/13/19 21:54 Creatinine 1.14 mg/dL (0.55-1.02) H 09/13/19 21:54 Estimated GFR/1.73 m2 45.75 (mL/min/1.73m2) 09/13/19 21:54 Glucose 125 mg/dL (70-100) H 09/13/19 21:54 Lactate 1.5 mmol/L (0.6-1.4) H 09/13/19 21:54 Calcium 9.2 mg/dL (8.5-10.1) 09/13/19 21:54 Total Bilirubin 0.5 mg/dL (0.2-1.0) 09/13/19 21:54 AST 12 U/L (15-37) L 09/13/19 21:54 ALT 17 U/L (14-59) 09/13/19 21:54 Alkaline Phosphatase 86 U/L (46-116) 09/13/19 21:54 Troponin I < 0.05 ng/mL (0.00-0.06) 09/14/19 00:30 NT-Pro-B Natriuret Pep 206 pg/mL (-299) 09/13/19 21:54 Total Protein 7.8 g/dL (6.4-8.2) 09/13/19 21:54 Albumin 3.3 g/dL (3.4-5.0) L 09/13/19 21:54 Lipase 106 U/L (73-393) 09/13/19 21:54 TSH 2.05 uIU/mL (0.36-3.74) 09/13/19 21:54 Urine Color Yellow (Yellow) 09/13/19 22:45 Urine Clarity Clear (Clear) 09/13/19 22:45 Urine pH 5.5 (5-8) 09/13/19 22:45 Ur Specific [place] 1.020 (1.005-1.025) 09/13/19 22:45 Urine Protein Negative mg/dL (Negative) 09/13/19 22:45 Urine Ketones Negative mg/dL (Negative) 09/13/19 22:45 Urine Blood Trace-intact (Negative) H 09/13/19 22:45 Urine Nitrite Positive (Negative) H 09/13/19 22:45 Urine Bilirubin Negative (Negative) 09/13/19 22:45 Urine Urobilinogen 0.2 EU/dL (Up TO 0.2) 09/13/19 22:45 Ur Leukocyte Esterase Negative (Negative) 09/13/19 22:45 Urine RBC 0-2 (0-2) 09/13/19 22:45 Urine WBC 0-2 HPF (0-5) 09/13/19 22:45 Ur Epithelial Cells Negative HPF (Negative) 09/13/19 22:45 Urine Crystals Negative HPF (Negative) 09/13/19 22:45 Urine Bacteria Many HPF (Negative) 09/13/19 22:45 Urine Casts Negative LPF (Negative) 09/13/19 22:45 Urine Mucus Negative (Negative) 09/13/19 22:45 Ur Culture Indicated? C&s done as ordered 09/13/19 22:45 Urine Glucose Negative mg/dL (Negative) 09/13/19 22:45
--- NOTE | 2019-09-14 08:31 | INITIAL_ITS ---
- If Service Date Differs Date of service: 09/14/19 Time of Service: 08:31 Care Management Initial Assess REASON FOR HOSPITALIZATION:: Enterititis, UTI, Dehydration PAST MEDICAL HISTORY/PAST SURGICAL HISTORY:: Hiatal hernia, osteoarthritis, HTN, GERD, dysphagia, surgical history TKR PREVIOUS FUNCTIONAL STATUS/SOCIAL/FAMILY SUPPORTS:: Mariposa lives with her spouse Jb in [place], [place]. Between her and her spouse she they have 7 grown children. Mariposa is independent at home she states she has a walker however she does not use it. She likes to garden and care for her [employer]. She has a friend in the community Rita who she describes as a dear friend is a person of support in the community. CURRENT FUNCTIONAL STATUS:: Mariposa is sitting up in the chair engaged with CM during assessment. CM noticed that she appeared a little short of breath while taking she states that is not her baseline. She describes a pretty active life and is able to care for herself and her gardens. CM did hand off the concern for shortness of breath to provider and nurse in the ICU. Mariposa states she is feeling better she reports her abdoman no longer hurts and she believes she may have just had a virus. ADVANCE DIRECTIVES:: None on file she states that she has one at home in her safe and her spouse is her agent. She also states she is also a DNR/DNI this is not on file and she is currently a full code. CM provided this information to provider for follow up. Has patient been provided with information about the portal?: Yes Did the patient sign up for the portal?: No CODE STATUS:: Full Code INSURANCE COVERAGE / FINANCIAL ISSUES:: Medicare and AARP CURRENT HOME/COMMUNITY SERVICES/EQUIPMENT:: None PRIMARY CARE PHYSICIAN:: Hilario Fisher MD POTENTIAL DISCHARGE NEEDS:: Follow up with pcp scheduled prior to discharge. PATIENT/FAMILY EDUCATION NEEDS:: Discharge education, limitations and follow up plan of care including ask me three and self management. ANTICIPATED BARRIERS TO DISCHARGE:: None TRANSPORTATION:: Via private car with spouse at time of discharge. PLAN:: Mariposa remains in the ICU as a medical surgical patient. She will be discharged home when medically ready. Anticipate no additional services at time of discharge. CM to continue to assess for discharge needs and support discharge plan.
[2019-09-14 08:44] LABS: Abs Immature Grans 0.04 k/cumm (0.0-0.09); Absolute Basophil Count 0.02 k/cumm (0.0-0.2); Absolute Lymphocyte Count 1.61 k/cumm (1.2-3.4); Absolute Monocyte Count 0.93 k/cumm (0.11-0.7); Absolute Neutrophil Count 7.97 k/cumm (1.2-6.7); Basophils % 0.2; Eosinophils % 0.9; HCT 35.1 % (36.0-46.0); HGB 11.7 g/dL (12.0-15.5); Immature Grans % 0.4; Lymphocytes % 15.1; Mean Corp. HGB Concentration 33.3 g/dL (32.0-36.0); Mean Corpuscular Hemoglobin 30.3 pg (27.0-33.0); Mean Corpuscular Volume 90.9 fL (80-95); Mean Platelet Volume 9.4 fL (8.0-11.0); Monocytes % 8.7; Neutrophils % 74.7; Platelet Count 292 x1000/uL (130-400); RBC 3.86 m/cumm (4.00-5.20); RBC Distribution Width 12.3 % (11.7-14.6); White Blood Cell Count 10.67 k/cumm (4.4-10.8)
[2019-09-14 09:13] LABS: ALT 14 U/L (14-59); AST 12 U/L (15-37); Albumin 2.9 g/dL (3.4-5.0); Alkaline Phosphatase 80 U/L (46-116); Anion Gap 10.9 mmol/L (3-11); BUN 18 mg/dL (7-18); Bilirubin, Total 0.7 mg/dL (0.2-1.0); CO2 23.1 mmol/L (21.0-32.0); Calcium 8.8 mg/dL (8.5-10.1); Chloride 105 mmol/L (98-107); Glucose 93 mg/dL (70-100); Potassium 4.4 mmol/L (3.5-5.1); Sodium 139 mmol/L (136-145); Total Protein 7.1 g/dL (6.4-8.2)
--- NOTE | 2019-09-14 11:21 | DI.MRI_ITS ---
EXAM: MR LUMBAR SPINE WO CLINICAL HISTORY: suspected cauda equina,fell couple of weeks ago, low back pain TECHNIQUE: Multiplanar multisequence MRI was performed. COMPARISON: CT CHEST PE ABD PELVIS W from 09/13/2019 XR LUMBAR SPINE COMPLETE from 09/14/2019 FINDINGS: The conus medullaris appears intact. There is no evidence of compression of the lower cord. No dis c herniation, mass or fracture is seen. Disc bulging is seen throughout. Facet degenerative changes are seen throughout. There is mild, grade 1 spondylolisthesis at L3-4 and L4-5. There is mild cent ral canal stenosis at L3-4. There is neural foraminal narrowing on the right at L4-5. IMPRESSION: Degenerative changes. No evidence of disc herniation, mass or significant central canal stenosis.
[2019-09-14] MEDS: Ketorolac 15 MG/ML VIAL IVP ×3 (12:55→18:17)
[2019-09-14] MEDS: Normal Saline Flush 10 ML SYR IVP (12:56)
--- NOTE | 2019-09-14 15:07 | DI.VRAD_ITS ---
PROCEDURE INFORMATION: Exam: MR Lumbar Spine Without Contrast. Exam date and time: 09/14/2019 11:21 AM Clinical history: 79 years old, female; Low back pain; Patient HX: Suspected cauda equina TECHNIQUE: Imaging protocol: Multiplanar magnetic resonance images of the lumbar spine without intravenous contrast. COMPARISON: CR XR LUMBAR SPINE COMPLETE 09/14/2019 9:38 AM FINDINGS: Vertebrae: Vertebral body hemangioma T11. Degenerative endplate marrow signal changes. No acute fracture. Grade 1 anterolisthesis L3-L4 and L4-L5. Spinal cord: Normal signal. No cord compression. T12-L1: Degenerative disc and spondylitic changes. No stenosis. L1-L2: Degenerative disc and spondylitic changes. No stenosis. L2-L3: Degenerative disc and spondylitic changes. Borderline central canal narrowing. No significant foraminal stenosis. L3-L4: Degenerative disc and spondylitic changes. Grade 1 anterolisthesis. Mild central canal stenosis. No significant foraminal stenosis. L4-L5: Degenerative disc and spondylitic changes. Grade one anterolisthesis. No significant central canal stenosis. Mild right foraminal narrowing. L5-S1: Degenerative disc and spondylitic changes. No central canal stenosis. No significant foraminal narrowing. Soft tissues: Unremarkable. IMPRESSION: Degenerative changes as described. Dictated and Authenticated by: John Bravo MD. Ordering:MAVIS Coffey MD
--- NOTE | 2019-09-14 17:09 | IN_ITS ---
Date of service: 09/14/19 Time of Service: 08:42 PT Notes Inpatient Physical Therapy Evaluation Date: 09/14/2019 Referring Doctor: John Agarwal MD PT Orders: PT CONSULT: Limited Ability Precautions: Fall. Standard. Activity as tolerated. Patient Profile/Admitting Diagnosis: Patient is an 79-year-old female admitted to the ICU on 09/13/2019 with right hip and low back pain s/p closed displaced fracture of the right fifth metatarsal on 08/27/2019 sustained from a fall, and abnormal gait. Patient was diagnosed with right low back pain, right hip pain, dehydration, and enteritis. PMHX: Hypertension GERD Presence of right artificial joint Dysfunction Hiatal hernia Corneal distrophy Social History/Home Situation: Patient is living at home with her . There are 26 steps to enter their home, and another flight of stairs inside to their bedroom. Equipment Owned/DME: [place] that she uses in the home only. Subjective: Patient reports a sharp pain in the low back at the level of the hips. She states it is worse with movement, and better at rest. She reports that she woke up with the pain on Saturday morning around 4AM, and she tried to go use the bathroom and felt the pain then. She said her had to help her off the toilet. Objective: General Observation: Patient is seen seated in her hospital chair. She has in IV in the L UE. Bilateral TEDS on. NO redness/contusion seen on R lower lumbar area nor the R hip. Mental Status: Alert and oriented x 4 Pain: Patient did not quantify pain. PALPATION: R hip musculature and R lumbar paraspinals tender and in guarding mode. ROM: Right Lower Extremity: Hip flexion WFL but is unable to do straight leg raise in supine. Hip abduction WFL. Knee flexion WFL. Ankle dorsiflexion WFL. Ankle plantarflexion WFL. Left Lower Extremity: Hip flexion WFL. Hip abduction WFL. Knee flexion WFL. Ankle dorsiflexion WFL. Ankle plantarflexion WFL. Strength: Grossly 3-/5 on B hips and knees when asked to do all movements in standing. No resistance given due to pain. Bed Mobility/Transfers: Rolling SBA Supine to sit Minimal assist Sit to supine SBA Sit to stand SBA Stand to sit SBA Bed to chair CGA Chair to bed CGA Gait: Patient ambulated 5?+5? with FWW, and SBA. She exhibited decreased step length and janet, and thus overall gait velocity was decreased. Balance: Static Sitting: Normal Dynamic Sitting: Normal Static Standing: Fair Dynamic Standing: Fair Special Tests: Mobility Limitations Standardized Measure [facility] AM-PAC 6 clicks Basic Mobility Inpatient Short Form: Raw Score: 18 CMS Score: 47% Informed Consent/Education: Patient instructed in purpose of PT consult and plan of care. Assessment: Patient is an 79 year old female admitted to the ICU with complaints of pain in the right hip, and right low back pain. She fractured her R 5th metatarsal. The ability to move her R LE is limited due to her pain, especially in the supine position. She has increased pain with single-leg stance on her R LE. She was unable to perform a SLR on the R LE. The SPT and DPT suspect sacroiliac joint dysfunction. Patient presents with clinical signs and symptoms consistent with current/admitting diagnoses that have resulted to mobility limitations, gait instability, generalized weakness, and impairment of motor control as demonstrated by the following impairment level findings: 1. Decreased strength to B LE major muscle groups 2. Impaired standing balance 3. Impaired activity tolerance Impairments are contributing to the following functional limitations: 1. Dependent bed mobility skills 2. Increased dependence with transfers 3. Inability to safely ambulate without assistive device and physical assistance 4. Increase completion time for mobility ADL performance 5. Increased fall risk 6. Inability to negotiate steps alone safely Patient is assessed as a [id number] moderate complexity based on the following: History: Patient with diagnoses with right low back pain, right hip pain, dehydration, and enteritis. Examination: Demonstrable impairment in strength, balance, and range of motion with underlying impairments and functional limitations as documented above Presentation: Evolving Decision Makin moderate complexity Goals: Goals X1 week 1. Supine-Sit independent 2. Sit-Supine independent 3. Sit-Stand independent 4. Stand-Sit independent 5. Bed-Chair independent 6. Chair-Bed independent 7. Independent gait on level surface with use of least restrictive device for at least 300 feet without report of pain nor dyspnea 8. Independent stair negotiation while holding onto bilateral rails for at least 10 steps without report of pain nor dyspnea 9. Independent with home exercise program 10. Good static and dynamic standing balance/tolerance Plan of Care/Treatment Plan: 1-2x/day, 7 days/week x 1 week. Plan of care has been reviewed with the [employer]SULT[employer] providing the service under Physical Therapy direction. Initiate Physical Therapy intervention for strengthening, bed mobility, transfers, gait, stairs, balance training, use of assistive device. DISCHARGE RECOMMENDATIONS: Patient is to be discharged to home under the care of her once she is medically stable and achieves all of the outlined goals. 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 Patient will benefit from home health PT services in order to progress mobility level using least restrictive assistive ambulatory device, assess home safety, identify additional equipment needs, and establish a functional maintenance program that will increase ability of patient to remain at home. TREATMENT CODE/TIME: [id number] x 26 minutes beginning at 8:42 AM. Thank you very much for this referral. Uche Mohamud, [facility] In consultation with: Helen Newton PT, DPT, CLT [facility]
[2019-09-15] MEDS: Ketorolac 15 MG/ML VIAL IVP (05:29)
[2019-09-15] MEDS: Heparin 5,000 UNITS/ML VIAL 5000 UNITS SC (05:30)
[2019-09-15 05:39] VITALS: BP 134/78; PULSE 97; O2SAT 97
[2019-09-15 06:05] VITALS: BP 134/78; PULSE 100; RESP 18; TEMP 36.7; O2SAT 94
[2019-09-15 06:57] LABS: Abs Immature Grans 0.01 k/cumm (0.0-0.09); Absolute Basophil Count 0.02 k/cumm (0.0-0.2); Absolute Eosinophil Count 0.24 k/cumm (0.0-0.7); Absolute Lymphocyte Count 1.48 k/cumm (1.2-3.4); Absolute Monocyte Count 0.63 k/cumm (0.11-0.7); Absolute Neutrophil Count 3.55 k/cumm (1.2-6.7); Basophils % 0.3; HCT 32.1 % (36.0-46.0); HGB 10.3 g/dL (12.0-15.5); Immature Grans % 0.2; Mean Corp. HGB Concentration 32.1 g/dL (32.0-36.0); Mean Corpuscular Hemoglobin 29.3 pg (27.0-33.0); Mean Corpuscular Volume 91.5 fL (80-95); Mean Platelet Volume 9.8 fL (8.0-11.0); Monocytes % 10.6; Neutrophils % 59.9; Platelet Count 279 x1000/uL (130-400); RBC 3.51 m/cumm (4.00-5.20); RBC Distribution Width 12.3 % (11.7-14.6); White Blood Cell Count 5.93 k/cumm (4.4-10.8)
[2019-09-15 07:09] LABS: Anion Gap 6.1 mmol/L (3-11); BUN 22 mg/dL (7-18); CO2 24.9 mmol/L (21.0-32.0); CREATININE 0.97 mg/dL (0.55-1.02); Calcium 8.6 mg/dL (8.5-10.1); Chloride 106 mmol/L (98-107); Estimated GFR 55.12 (mL/min/1.73m2); Glucose 80 mg/dL (70-100); Potassium 4.3 mmol/L (3.5-5.1); Sodium 137 mmol/L (136-145)
--- NOTE | 2019-09-15 08:15 | PGE_ITS ---
Subjective Subjective Interval history since last seen: Toradol has been helping. No more urinary retention. Has been able to walk with a walker. Yet to do stairs. Objective Objective Clinical Data: Abnormal lab results 09/14/19 09/14/19 09/15/19 Range/Units 08:34 08:34 06:10 RBC 3.86 L (4.00-5.20) m/cumm Hgb 11.7 L (12.0-15.5) g/dL Hct 35.1 L (36.0-46.0) % Absolute Neutrophils 7.97 H (1.2-6.7) k/cumm Absolute Monocytes 0.93 H (0.11-0.7) k/cumm BUN 22 H (7-18) mg/dL AST 12 L (15-37) U/L Albumin 2.9 L (3.4-5.0) g/dL 09/15/19 Range/Units 06:10 RBC 3.51 L (4.00-5.20) m/cumm Hgb 10.3 L (12.0-15.5) g/dL Hct 32.1 L (36.0-46.0) % Absolute Neutrophils (1.2-6.7) k/cumm Absolute Monocytes (0.11-0.7) k/cumm BUN (7-18) mg/dL AST (15-37) U/L Albumin (3.4-5.0) g/dL Vital Signs Temperature 36.7 C 09/15/19 06:05 Temperature Source Temporal Artery Scan 09/15/19 06:05 Pulse 100 H 09/15/19 06:05 Pulse Rhythm Regular 09/14/19 20:42 Pulse 101 H 09/14/19 01:02 Respiratory Rate 18 09/15/19 06:05 Respiratory Effort 09/14/19 20:42 Respiratory Depth Normal 09/14/19 20:42 Respiratory Pattern Normal 09/14/19 20:42 Blood Pressure 134/78 09/15/19 06:05 Blood Pressure Mean 113 09/14/19 16:16 Blood Pressure Position Supine 09/14/19 03:08 Pulse Oximetry 94 L 09/15/19 06:05 Oxygen Delivery Method Room Air 09/15/19 06:05 Oxygen Flow Rate 0 09/15/19 06:05 Pain Level 0 09/15/19 06:05 Intake & Output 09/14/19 09/14/19 09/15/19 11:59 23:59 11:59 Intake Total 3560 / 4250 690 / 4250 Output Total 950 / 1375 425 / 1375 250 / 250 Balance 2610 / 2875 265 / 2875 -250 / -250 Weight 89.7 kg 93.6 kg Intake: IV 3260 / 3270 10 / 3270 Oral 300 / 980 680 / 980 Output: Urine 950 / 1375 425 / 1375 250 / 250 Other: Urine Color Yellow Yellow Straw Urine Appearance Cloudy Clear Cloudy Sediment Urine Odor Strong None Comment Pre-void 175ml entered in PVR screen Voiding Methods Bedside Commode Bedside Commode Bedside Commode Laboratory Results WBC 5.93 k/cumm (4.4-10.8) D 09/15/19 06:10 RBC 3.51 m/cumm (4.00-5.20) L 09/15/19 06:10 Hgb 10.3 g/dL (12.0-15.5) L 09/15/19 06:10 Hct 32.1 % (36.0-46.0) L 09/15/19 06:10 MCV 91.5 fL (80-95) 09/15/19 06:10 MCH 29.3 pg (27.0-33.0) 09/15/19 06:10 MCHC 32.1 g/dL (32.0-36.0) 09/15/19 06:10 RDW 12.3 % (11.7-14.6) 09/15/19 06:10 Plt Count 279 x1000/uL (130-400) 09/15/19 06:10 MPV 9.8 fL (8.0-11.0) 09/15/19 06:10 Immature Gran % 0.2 09/15/19 06:10 Neutrophils % 59.9 09/15/19 06:10 Lymphocytes % 25.0 09/15/19 06:10 Monocytes % 10.6 09/15/19 06:10 Eosinophils % 4.0 09/15/19 06:10 Basophils % 0.3 09/15/19 06:10 Absolute Neutrophils 3.55 k/cumm (1.2-6.7) 09/15/19 06:10 Absolute Lymphocytes 1.48 k/cumm (1.2-3.4) 09/15/19 06:10 Absolute Monocytes 0.63 k/cumm (0.11-0.7) 09/15/19 06:10 Absolute Eosinophils 0.24 k/cumm (0.0-0.7) 09/15/19 06:10 Absolute Basophils 0.02 k/cumm (0.0-0.2) 09/15/19 06:10 PT 10.4 sec (9.3-11.0) 09/13/19 21:54 INR 1.0 (0.9-1.1) 09/13/19 21:54 APTT 30.3 sec (21.0-31.4) 09/13/19 21:54 Sodium 137 mmol/L (136-145) 09/15/19 06:10 Potassium 4.3 mmol/L (3.5-5.1) 09/15/19 06:10 Chloride 106 mmol/L (98-107) 09/15/19 06:10 Carbon Dioxide 24.9 mmol/L (21.0-32.0) 09/15/19 06:10 Anion Gap 6.1 mmol/L (3-11) 09/15/19 06:10 BUN 22 mg/dL (7-18) H 09/15/19 06:10 Creatinine 0.97 mg/dL (0.55-1.02) 09/15/19 06:10 Estimated GFR/1.73 m2 55.12 (mL/min/1.73m2) 09/15/19 06:10 Glucose 80 mg/dL (70-100) 09/15/19 06:10 Lactate 1.0 mmol/L (0.6-1.4) 09/14/19 08:34 Calcium 8.6 mg/dL (8.5-10.1) 09/15/19 06:10 Magnesium 2.0 mg/dL (1.8-2.4) 09/15/19 06:10 Total Bilirubin 0.7 mg/dL (0.2-1.0) 09/14/19 08:34 AST 12 U/L (15-37) L 09/14/19 08:34 ALT 14 U/L (14-59) 09/14/19 08:34 Alkaline Phosphatase 80 U/L (46-116) 09/14/19 08:34 Troponin I < 0.05 ng/mL (0.00-0.06) 09/14/19 00:30 NT-Pro-B Natriuret Pep 206 pg/mL (-299) 09/13/19 21:54 Total Protein 7.1 g/dL (6.4-8.2) 09/14/19 08:34 Albumin 2.9 g/dL (3.4-5.0) L 09/14/19 08:34 Lipase 106 U/L (73-393) 09/13/19 21:54 TSH 2.05 uIU/mL (0.36-3.74) 09/13/19 21:54 Urine Color Yellow (Yellow) 09/13/19 22:45 Urine Clarity Clear (Clear) 09/13/19 22:45 Urine pH 5.5 (5-8) 09/13/19 22:45 Ur Specific [place] 1.020 (1.005-1.025) 09/13/19 22:45 Urine Protein Negative mg/dL (Negative) 09/13/19 22:45 Urine Ketones Negative mg/dL (Negative) 09/13/19 22:45 Urine Blood Trace-intact (Negative) H 09/13/19 22:45 Urine Nitrite Positive (Negative) H 09/13/19 22:45 Urine Bilirubin Negative (Negative) 09/13/19 22:45 Urine Urobilinogen 0.2 EU/dL (Up TO 0.2) 09/13/19 22:45 Ur Leukocyte Esterase Negative (Negative) 09/13/19 22:45 Urine RBC 0-2 (0-2) 09/13/19 22:45 Urine WBC 0-2 HPF (0-5) 09/13/19 22:45 Ur Epithelial Cells Negative HPF (Negative) 09/13/19 22:45 Urine Crystals Negative HPF (Negative) 09/13/19 22:45 Urine Bacteria Many HPF (Negative) 09/13/19 22:45 Urine Casts Negative LPF (Negative) 09/13/19 22:45 Urine Mucus Negative (Negative) 09/13/19 22:45 Ur Culture Indicated? C&s done as ordered 09/13/19 22:45 Urine Glucose Negative mg/dL (Negative) 09/13/19 22:45
[2019-09-15 08:27] VITALS: BP 131/84; PULSE 92; RESP 24; TEMP 36.5; O2SAT 98
[2019-09-15 08:28] VITALS: BP 131/84; PULSE 102
--- NOTE | 2019-09-15 08:57 | PDOC.CMDIS ---
- If Service Date Differs Date of service: 09/15/19 Time of Service: 08:57 LACE Index Scoring Tool - Questions: Length of Stay (in days): 3 Acuity (Admit via E.D.?): Yes E.D. Visits: 2 - Answers: Total Score: 8 Risk of Readmission: Low Risk Care Management Discharge Reason for Hospitalization: Enterititis, UTI, Dehydration Discharge Plan: Mariposa will be discharged home with home no services. She will follow up with primary care as directed. CM provided list of local psychiatrist as requested by the patient and her spouse to follow up with as outpatient. Pt will be transported home by her spouse at time of discharge. Patient/Family Education Needs: Discharge education, limitations and follow up plan of care including ask me three.
[2019-09-15] MEDS: Lisinopril 20 MG TAB PO (09:14)
[2019-09-15] MEDS: Lidocaine Patch Removal 1 EACH TD (09:37)
--- NOTE | 2019-09-15 12:14 | DSE_ITS ---
Date of service: 09/15/19 Time of Service: 12:14 DS: Diagnosis Discharge Diagnosis (1) Muscle spasm: Status: Acute (2) Degenerative disc disease: Status: Acute (3) Dehydration: Status: Resolved (4) Enteritis: Status: Resolved Asessment and Plan: viral, resolved. (5) Urinary retention: Status: Resolved Discharge Plan Disposition Patient Disposition: HOME Condition: Stable Discharge Details Chief Complaint: Nk/Back Pain Clinical Impression: Enteritis, Dehydration, Sepsis, Right flank pain Reason For Visit: ENTERITIS, UTI, DEHYDRATION Admit Date/Time: 09/14/19 01:11 Admit Provider: John Agarwal Attending Provider: John Agarwal Primary Care Provider: Hilario Fisher ED Provider: Oneil Rojas Hospital Course Hospital Course: Ms Cheatham is an 79 year old female with PMHx of GERD, hypertension, osteoarthritis, who was admitted to [facility] on 09/14/19 with R lower back pain now deemed to be due to a muscle spasm as well as question of mild viral enteritis. She was found to have mild urinary retention by PVR's. Given the findings of lower back pain and urinary retention, we did obtain an MRI of the lumbar spine to ensure that the patient did not have cord compression - which she does not. She does have degenerative disc disease on MRI. The patient's pain was predominantly treated with IV toradol. Her urinary retention resolved with resolution of pain. On the evening of 09/14, she was able to participate with PT in walking down the hallway and, on 09/15/19, was able to navigate the stairs. She no longer requires a walker, but has one at home. The patient is recommended to take ibuprofen if she develops pain like this again and is being referred to outpatient physical therapy. The patient's reported to nusing that he feels the patient has a food hoarding problem and was interested in resources in dealing with it. Care management is providing resources to the family in the community, and we ask that the PCP follow up with the patient on this issue. The patient is medically stable for discharge home today. 40 minutes were spent on discharge summary and care for patient on the day of discharge. Home Meds and New Rx's Prescriptions: New ibuprofen 200 mg tablet 600 mg PO Q6H PRN (Reason: pain) Qty: 30 RF: 0 Continued lisinopril 20 MG tablet 20 mg PO DAILY RF: 0 Centrum Silver 1 EACH tablet 1 ea PO DAILY RF: 0 One-Per-Day Effie-3 1 EACH capsule,delayed release(DR/EC) 1 ea PO DAILY RF: 0 Discontinued naproxen 500 MG tablet 500 mg PO Q12H PRN RF: 0 azithromycin 250 mg Tablet 0 PO .COMPLEX RF: 0 Discharge Instructions Instructions: Acute Low Back Pain (DC) Additional Instructions: Return to the hospital with uncontrolled pain, fever, bleeding, chest pain, or shortness of breath. Care Plan Goals: Home with a referral to outpatient PT. Referrals: Hilario Fisher [Primary Care Provider] - [facility] [OTHER] - (lower back pain, muscle spasm) Activity:: Activity as Tolerated Equipment/Supplies:: No Equipment Needed Diet:: As Tolerated Discharge Orders Discharge Orders: Discharge Order (Routine); Ordered 09/15/19 Ordered By: Erlinda Coon DS: Summary Status at Discharge Functional status at discharge: independent ambulation Overall status at discharge: patient is back to baseline Mental Status: mental status grossly normal Speech and Movement: speech and movement normal Mood: congruent mood Affect: normal affect Exam Narrative Exam Narrative: General: very pleasant elderly female, very ener gentic, A&Ox3, sitting comfortably in a chair HEENT: EOMI, MMM Heart: RRR Lungs: CTAB GI: abdomen is soft, nontender, nondistended Extremities: no e/c/c BLE's Psych Mental Status: mental status grossly normal Speech and Movement: speech and movement normal Mood: congruent mood Affect: normal affect DS: Data Vitals/I&O Vitals and I&O: Vital Signs Temperature 36.5 C 09/15/19 08:27 Temperature Source Temporal Artery Scan 09/15/19 08:27 Pulse 102 H 09/15/19 08:28 Pulse Rhythm Regular 09/15/19 08:27 Pulse 101 H 09/14/19 01:02 Respiratory Rate 24 09/15/19 08:27 Respiratory Effort 09/15/19 08:38 Respiratory Depth Normal 09/15/19 08:38 Respiratory Pattern Normal 09/15/19 08:38 Blood Pressure 131/84 09/15/19 08:28 Blood Pressure Mean 90 09/15/19 08:28 Blood Pressure Position Supine 09/14/19 03:08 Pulse Oximetry 98 10/22/19 08:27 Oxygen Delivery Method Room Air 09/15/19 08:27 Oxygen Flow Rate 0 09/15/19 08:27 Pain Level 0 09/15/19 08:27 Comment 09/15/19 08:27 Intake & Output 09/14/19 09/15/19 09/15/19 23:59 11:59 23:59 Intake Total 690 / 4250 360 / 360 Output Total 425 / 1375 400 / 400 Balance 265 / 2875 -40 / -40 Weight 93.6 kg Intake: IV 3269 Oral 680 / 980 360 / 360 Output: Urine 425 / 1375 400 / 400 Other: Urine Color Yellow Straw Urine Appearance Clear Cloudy Urine Odor None Comment 175ml entered in PVR screen mixed with stool Stool Occult Blood Negative Stool Size Small Stool Characteristics Soft Formed Brown Voiding Methods Bedside Commode Bedside Commode Data Completed and Pending Completed studies during hospitalization [Text1]: CT chest/abdomen/pelvis 09/14/19: PE CHEST: There is no evidence of pulmonary embolic disease. The appearance of the pulmonary parenchyma is consistent with air trapping and small airway disease. ABDOMEN AND PELVIS: Findings suggesting the possibility of acute enteritis. XR R hip : Minimal right hip DJD is demonstrated. XR lumbar spine 09/14/19: Degenerative changes involving the lumbar spine as described above. MRI lumbar spine 09/14/19: Degenerative changes. No evidence of disc herniation, mass or significant central canal stenosis. Labs on day of discharge: Labs from last 24 hours 09/15/19 09/15/19 06:10 06:10 WBC 5.93 D RBC 3.51 L Hgb 10.3 L Hct 32.1 L MCV 91.5 MCH 29.3 MCHC 32.1 RDW 12.3 Plt Count 279 MPV 9.8 Immature Gran % 0.2 Neutrophils % 59.9 Lymphocytes % 25.0 Monocytes % 10.6 Eosinophils % 4.0 Basophils % 0.3 Absolute Neutrophils 3.55 Absolute Lymphocytes 1.48 Absolute Monocytes 0.63 Absolute Eosinophils 0.24 Absolute Basophils 0.02 Sodium 137 Potassium 4.3 Chloride 106 Carbon Dioxide 24.9 Anion Gap 6.1 BUN 22 H Creatinine 0.97 Estimated GFR/1.73 m2 55.12 Glucose 80 Calcium 8.6 Magnesium 2.0 Preliminary micro results at discharge 09/13/19 22:45 Urine Culture - Preliminary Urine - Cath Straight Escherichia coli Gram Positive Aria 09/13/19 22:15 Blood Culture - Preliminary Blood NO GROWTH 24 HOURS 09/13/19 21:54 Blood Culture - Preliminary Blood NO GROWTH 24 HOURS PFS Social History Smoking/Tobacco Use Status: Never Alcohol Intake: never Drug use: Never Do you feel safe at home: Yes Do you feel safe in your relationship?: Yes
--- NOTE | 2019-09-15 12:24 | PTTR_ITS ---
Date of service: 09/15/19 Time of Service: 12:24 PT Notes Inpatient Physical Therapy Treatment Note [facility] Date: 09/15/19 PRECAUTIONS: Fall SUBJECTIVE: Mariposa states that she is looking forward to going home today. She is agreeable to participating in PT. OBJECTIVE: PAIN: No c/o pain BED MOBILITY/TRANSFERS Sit-stand: I Stand-sit: I GAIT Assistive Device: No AD Weight bearing: Full Assist: S Distance: 50' + 100' Deviation: Slow pace STAIRS: Up/down 18x4 and 12x6 using B rails and a step-over pattern, independently. ASSESSMENT: Patient tolerated session well without complaint. She was able to tolerate a progression in gait distance without AD support, with supervision o monica. PLAN: As per primary PT TREATMENT CODE/TIME: 15 minutes; [id number]
--- NOTE | 2019-09-18 05:26 | PT.INDS ---
Date of service: 09/17/19 PT Notes PT Inpatient Discharge Summary Date: 09/17/2019 Dates of Service: 09/14/2019 through 09/15/2019 This is a clinical summary of care provided on the duration of dates listed above. No charge was made in the completion of this documentation. Referring Doctor: John Agarwal MD PT Orders: PT CONSULT: Limited Ability Precautions: Fall. Standard. Activity as tolerated. Patient Profile/Admitting Diagnosis: Patient is an 79-year-old female admitted to the ICU on 09/13/2019 with right hip and low back pain s/p closed displaced fracture of the right fifth metatarsal on 08/27/2019 sustained from a fall, and abnormal gait. Patient was diagnosed with right low back pain, right hip pain, dehydration, and enteritis. PMHX: Hypertension GERD Presence of right artificial joint Dysfunction Hiatal hernia Corneal distrophy Social History/Home Situation: Patient is living at home with her . There are 26 steps to enter their home, and another flight of stairs inside to their bedroom. Equipment Owned/DME: [place] that she uses in the home only. Subjective: NT Objective: General Observation: NT Mental Status: NT Pain: NT PALPATION: R hip musculature and R lumbar paraspinals tender and in guarding mode. ROM: Right Lower Extremity: Hip flexion WFL but is unable to do straight leg raise in supine. Hip abduction WFL. Knee flexion WFL. Ankle dorsiflexion WFL. Ankle plantarflexion WFL. Left Lower Extremity: Hip flexion WFL. Hip abduction WFL. Knee flexion WFL. Ankle dorsiflexion WFL. Ankle plantarflexion WFL. Strength: Grossly 3-/5 on B hips and knees when asked to do all movements in standing. No resistance given due to pain. Bed Mobility/Transfers: Rolling independent Supine to sit independent Sit to supine independent Sit to stand independent Stand to sit independent Bed to chair independent Chair to bed independent Gait: Patient ambulated 50?+100? with FWW, and supervision, gait velocity remians decreased. Up and down 4-inch steps x18 and 6-inch steps x 12 while holding onto bilateral rails wth step over step pattern. Balance: Static Sitting: Normal Dynamic Sitting: Normal Static Standing: Fair Dynamic Standing: Fair Assessment: Patient is an 79 year old female admitted to the ICU with complaints of pain in the right hip, and right low back pain. She fractured her R 5th metatarsal. Patient continues to present with clinical signs and symptoms consistent with current/admitting diagnoses that have resulted to mobility limitations, gait instability, generalized weakness, and impairment of motor control as demonstrated by the following impairment level findings: 1. Decreased strength to B LE major muscle groups 2. Impaired standing balance 3. Impaired activity tolerance Impairments are contributing to the following functional limitations: 1. Inability to safely ambulate without assistive device and physical assistance 2. Increase completion time for mobility ADL performance 3. Increased fall risk 4. Inability to negotiate steps alone safely Goals: Goals X1 week 1. Supine-Sit independent MET 2. Sit-Supine independent MET 3. Sit-Stand independent MET 4. Stand-Sit independent MET 5. Bed-Chair independent MET 6. Chair-Bed independent MET 7. Independent gait on level surface with use of least restrictive device for at least 300 feet without report of pain nor dyspnea NOT MET 8. Independent stair negotiation while holding onto bilateral rails for at least 10 steps without report of pain nor dyspnea NOT MET 9. Independent with home exercise program NOT MET 10. Good static and dynamic standing balance/tolerance NOT MET DISCHARGE RECOMMENDATIONS: Patient is to be discharged to home under the care of her once she is medically stable and achieves all of the outlined goals. 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 Patient will benefit from home health PT services in order to progress mobility level using least restrictive assistive ambulatory device, assess home safety, identify additional equipment needs, and establish a functional maintenance program that will increase ability of patient to remain at home. TREATMENT CODE/TIME:CT. Thank you very much for this referral. Helen Newton PT, DPT, CLT [facility]
== END 2019-09-15 13:25 | disposition home or self-care (01) | DRG 392 ==
LOC: ER 09-14 01:49 → ICU 09-14 02:01
PROVIDERS: Admitting Provider Family Medicine; Emergency Provider Student in an Organized Health Care Education/Training Program; PCP Family Medicine; Visit Provider Internal Medicine
DX: K52.9 Noninfective gastroenteritis and colitis, unspecified (principal); M51.36 Other intervertebral disc degeneration, lumbar region; M62.830 Muscle spasm of back; R82.71 Bacteriuria; B96.20 Unspecified Escherichia coli [E. coli] as the cause of diseases classified elsewhere; E86.0 Dehydration; R33.9 Retention of urine, unspecified; K21.9 Gastro-esophageal reflux disease without esophagitis; I10 Essential (primary) hypertension
CPT/HCPCS: 36415; 71275; 74177; 80048; 80053; 83690; 87040; 87077; 87449; 93005; 96361; 96365; 96375; 97162; 97530; 99223; 99239; 99285; NC; 72110; 72148; 73502; 81003; 81015; 83605; 83735; 83880; 84443; 84484; 85025; 85610; 85730; 87086; 87186; 93010; J1644; J1885; J1956; J2405; J3490

== ENCOUNTER 2019-09-28 12:22 | Outpatient (REF) | payer MEDICARE, SELFPAY ==
[2019-09-28 18:48] LABS: HCT 38.8 % (36.0-46.0); HGB 12.5 g/dL (12.0-15.5); Mean Corp. HGB Concentration 32.2 g/dL (32.0-36.0); Mean Corpuscular Hemoglobin 29.7 pg (27.0-33.0); Mean Corpuscular Volume 92.2 fL (80-95); Mean Platelet Volume 11.4 fL (8.0-11.0); Platelet Count 201 x1000/uL (130-400); RBC 4.21 m/cumm (4.00-5.20); RBC Distribution Width 13.2 % (11.7-14.6); White Blood Cell Count 5.71 k/cumm (4.4-10.8)
== END 2019-09-28 12:42 ==
LOC: NCHCN 12:22
PROVIDERS: PCP Family Medicine; Visit Provider Family Medicine
DX: D64.9 Anemia, unspecified (principal)
CPT/HCPCS: 85027

== ENCOUNTER 2019-10-07 11:14 | Outpatient (CLI) | payer MEDICARE, SELFPAY ==
--- NOTE | 2019-10-07 09:45 | DI.RAD_ITS ---
EXAM: XR FOOT RT COMPLETE INDICATION: f/u. COMPARISON: XR FOOT RT COMPLETE from 08/27/2019 TECHNIQUE: 2D digital imaging was performed. FINDINGS: There has been no change in alignment of the fracture at the base of the right 5th metatarsal.
== END 2019-10-07 11:34 ==
PROVIDERS: PCP Family Medicine; Visit Provider Orthopaedic Surgery
DX: S92.351D Displaced fracture of fifth metatarsal bone, right foot, subsequent encounter for fracture with routine healing (principal); X58.XXXD Exposure to other specified factors, subsequent encounter; I10 Essential (primary) hypertension
CPT/HCPCS: 99214; 73630

== ENCOUNTER 2020-08-31 10:07 | Emergency (ER) | payer MEDICARE, SELFPAY ==
[2020-08-31] VITALS (44 sets, daily range): BP systolic 111–137; BP diastolic 62–80; PULSE 69–112; RESP 10–29; TEMP 36.7; O2SAT 96–100
--- NOTE | 2020-08-31 10:39 | ED.GENADUL_ITS ---
Discharge Plan Disposition Patient Disposition: HOME Condition: Improving Discharge Details Clinical Impression: Accidental poisoning by carbon monoxide Primary Care Provider: Hilario Fisher ED Provider: Debbie Marie Home Meds and New Rx's Prescriptions: Continued lisinopril 20 MG tablet 20 mg PO DAILY RF: 0 Centrum Silver 1 EACH tablet 1 ea PO DAILY RF: 0 One-Per-Day Couch-3 1 EACH capsule,delayed release(DR/EC) 1 ea PO DAILY RF: 0 ibuprofen 200 mg tablet 600 mg PO Q6H PRN (Reason: pain) Qty: 30 RF: 0 Discharge Instructions Instructions: Carbon Monoxide Poisoning (ED) Additional Instructions: Follow up with primary care provider in 3-5 days. Return to ED sooner if any worsening or concerns. Increase oral fluids. Please take Tylenol or Ibuprofen with food every 4-6 hours as needed for pain and swelling. Allow your house to air out, get lots of pressure over the next couple of days. Return to the ED for any worsening dizziness, headache, nausea or any other symptoms or concerns. Referrals: Hilario Fisher [Primary Care Provider] - Discharge Data Discharge Date/Time-TO BE ENTERED AT DEPARTURE: 08/31/20 14:01 Medical Decision Making 80-year-old female presents to the ED with chief complaint of carbon monoxide exposure. She reports that her fell this morning she was able to get him back into the bed he called 911, when EMS arrived they found the furnace to not be working and carbon monoxide reading greater than 100 in the house. Patient did not notice any symptoms but is complaining of a headache upon arrival. She did state that she was a little dizzy and had some nausea which has resolved. She was placed on 4 L nasal cannula by EMS which improved her symptoms, upon arrival to the department we placed her on a nonrebreather at 15 L. Her initial CO2 reading was 22 and it has dropped down to 19 at this time. She has no other complaints. She did take 1 ibuprofen prior to arrival. Work-up ordered including lactate which is 0.9, CBC CMP, troponin, EKG. 1117: Contact made with [employer], I spoke with Carl, he reccommends drawing a Lactate, high flow O2, Observe x 2 hours, MME now and prior to discharge. He will speak with medical facilities section director regarding the potential and possibility for hyperbaric chamber necessity he will call me back. 1141: Spoke again with Carl with poision control who does not recommend hyper barric chamber at this time, he does recommend repeat Carboxyhemoglobin level prior to discharge. 1259: Patient taken off nonrebreather oxygen for room air trial, repeat carboxyhemoglobin ordered. Patient states that she feels much better has no complaints at this time. Informed by EMS crew which responded on scene that the carbon monoxide source was actually a car which was accidentally left running in the garage. Patient was last 1 use the car and states that it is a push button car and that she accidentally left the car running over the last 12 hours. 1317: Repeat carboxyhemoglobin level at this time is 9.5. At this time I do feel it is safe for patient to be discharged home she is now asymptomatic and her levels have greatly improved. Patient remained hemodynamically stable, feels much better has no complaints at this time. I do feel it is safe for the patient to be discharged home due to the fact that this is an acute exposure and not chronic CO2 poisoning. Discuss strict return instructions and home care, verbalized understanding. HPI General Mode of arrival: EMS . Date/Time Provider Initiated Documentation: 08/31/20 10:20 . Limitations to Documentation: no limitations . Information obtained by: patient and EMS . HPI Narrative: 80-year-old female presents to the ED with chief complaint of carbon monoxide exposure. She reports that her fell this morning she was able to get him back into the bed he called 911, when EMS arrived they found the furnace to not be working and carbon monoxide reading greater than 100 in the house. Patient did not notice any symptoms but is complaining of a headache upon arrival. She did state that she was a little dizzy and had some nausea which has resolved. She was placed on 4 L nasal cannula by EMS which improved her symptoms, upon arrival to the department we placed her on a nonrebreather at 15 L. Her initial CO2 reading was 22 and it has dropped down to 19 at this time. She has no other complaints. She did take 1 ibuprofen prior to arrival. Related Data Home Medications Medication Instructions Recorded Confirmed Centrum Silver 1 ea PO DAILY 06/24/15 10/07/19 One-Per-Day Couch-3 1 ea PO DAILY 06/24/15 10/07/19 lisinopril 20 mg PO DAILY tab-cap 06/24/15 10/07/19 ibuprofen 600 mg PO Q6H PRN #30 tab 09/15/19 10/07/19 Previous Rx's Medication Instructions Recorded ibuprofen 600 mg PO Q6H PRN #30 tab 09/15/19 Allergies Allergy/AdvReac Type Severity Reaction Status Date / Time Penicillins Allergy Intermediate Unverified 10/07/19 09:36 doxycycline monohydrate Allergy HIVES Unverified 10/07/19 09:36 [From Vibramycin] lactose AdvReac Mild GI upset Unverified 10/07/19 09:36 General SEBASTIAN: 4 Review of Systems Narrative: Constitutional: Negative for weight loss, alert and oriented, well groomed, normal body habitus, appears comfortable. HEENT: Denies trauma, blurry vision, nasal discharge, sore throat, trouble swallowing. Positive headache Chest: Denies chest pain, palpitations, irregular rhythm, hypertension. Respiratory: Denies Shortness of breath, cough, hemoptysis. GI: Denies abdominal pain, nausea, vomiting, diarrhea, constipation. : Denies dysuria, hematuria, flank pain, rectal bleeding. Neuro: Denies dizziness, blurry vision, weakness, syncope, headache or facial numbness. Hematologic: Denies easy bruising, intolerance to heat or cold, hair loss. [facility] Medical History Corneal dystrophy GERD (gastroesophageal reflux disease) Hiatal hernia Hypertension Surgical History Presence of right artificial knee joint (01/23/16) Social History Smoking/Tobacco Use Status: Never Alcohol Intake: never Drug use: Never Current gender identity: female Do you feel safe at home: Yes Do you feel safe in your relationship?: Yes Exam Narrative Exam Narrative: Constitutional: Alert and oriented x3. Appears stated age. Normal body habitus. Head: Normocephalic, no trauma. Eyes: Pupils PERRLA, Red reflex noted, EOM's intact. Eyelids symmetrical without lesions, discharge, or swelling. ENT: Bilateral TM's WNL, External ear normal to inspection, no mastoid TTP, swelling, or erythema, Nasal turbinates WNL, no nasal discharge. Normal dentition, Posterior pharynx WNL, no exudate. Chest: RRR, Normal S1, S2, distal pulses intact. Resp: Lungs clear to auscultation bilaterally, no wheezes, rales, or rhonchi. Musculoskeletal: Normal gait, 5/5 strength to all four extremities. Skin: No suspicious rashes or lesions. Capillary refill less than 2 sec. Neurologic: Cranial nerves II-XII intact. Alert and oriented x 3. DTR's intact. Hematologic/Lymphatic: No ecchymosis, no lymphadenopathy.
[2020-08-31 11:07] LABS: Carboxyhemoglobin 21.9 %
[2020-08-31] MEDS: Normal Saline 1,000 ML 500 ML IV (11:07)
[2020-08-31] MEDS: Acetaminophen 325 MG TAB 650 MG PO (11:07)
--- NOTE | 2020-08-31 11:15 | RT.EKG_ITS ---
APPROVED REPORT Exam: Resting ECG Patient Location: E HR:72 bpm ECG Measurements Heart Rate 72 AXIS WI 174 P 50 QRSd 83 QRS -20 QT 388 T 25 QTc 424 Conclusion Sinus rhythm...normal P axis, V-rate 60- 99 I have reviewed and interpreted ECG and agree with software generated interpretation.
[2020-08-31 12:44] LABS: Abs Immature Grans 0.03 10^3/uL (0.0-0.06); Absolute Basophil Count 0.02 10^3/uL (0.0-0.2); Absolute Eosinophil Count 0.06 10^3/uL (0.0-0.7); Absolute Lymphocyte Count 1.24 10^3/uL (1.2-3.4); Absolute Monocyte Count 0.33 10^3/uL (0.1-0.8); Absolute Neutrophil Count 4.85 10^3/uL (1.2-6.7); Basophils % 0.3; Eosinophils % 0.9; HCT 38.5 % (36.0-46.0); HGB 12.7 g/dL (11.2-15.7); Immature Grans % 0.5; MCH 30.6 pg (27.0-33.0); MCV 92.8 fL (80-95); MPV 10.7 fL (8.0-11.0); Monocytes % 5.1; Neutrophils % 74.2; Nucleated RBC 0 %; Platelet Count 211 10^3/uL (130-400); RBC 4.15 10^6/uL (3.93-5.22); RDW 12.6 % (11.7-14.6); RDW-SD 42.8 fL; WBC 6.53 10^3/uL (4.4-10.8)
[2020-08-31 12:48] LABS: Lactate 0.9 mmol/L (0.6-1.4)
[2020-08-31 12:58] LABS: ALT 19 U/L (14-59); AST 17 U/L (15-37); Albumin 3.5 g/dL (3.4-5.0); Alkaline Phosphatase 78 U/L (46-116); Anion Gap 7.3 mmol/L (3-11); BUN 33 mg/dL (7-18); Bilirubin, Total 0.3 mg/dL (0.2-1.0); CO2 27.7 mmol/L (21.0-32.0); CREATININE 1.03 mg/dL (0.55-1.02); Calcium 9.1 mg/dL (8.5-10.1); Chloride 106 mmol/L (98-107); Glucose 107 mg/dL (74-106); Magnesium 2.1 mg/dL (1.8-2.4); Potassium 4.5 mmol/L (3.5-5.1); Sodium 141 mmol/L (136-145)
[2020-08-31 12:59] LABS: Troponin I < 0.05 ng/mL (<0.06)
[2020-08-31 13:07] LABS: Carboxyhemoglobin 9.5 %
== END 2020-08-31 14:01 | disposition home or self-care (01) ==
LOC: ER 13:53
PROVIDERS: Emergency Provider Registered Nurse Emergency; PCP Family Medicine
DX: T58.01XA Toxic effect of carbon monoxide from motor vehicle exhaust, accidental (unintentional), initial encounter (principal); R42 Dizziness and giddiness; R51.9 Headache, unspecified; R11.0 Nausea; I10 Essential (primary) hypertension
CPT/HCPCS: 36415; 80053; 82375; 93005; 96360; 99285; 83605; 83735; 84484; 85025; 93010

== ENCOUNTER 2020-09-05 11:49 | Outpatient (REF) | payer MEDICARE, SELFPAY ==
[2020-09-05 18:31] LABS: Anion Gap 6.9 mmol/L (3-11); BUN 26 mg/dL (7-18); CO2 30.1 mmol/L (21.0-32.0); CREATININE 0.99 mg/dL (0.55-1.02); Calcium 9.1 mg/dL (8.5-10.1); Chloride 105 mmol/L (98-107); Glucose 97 mg/dL (74-106); Potassium 4.9 mmol/L (3.5-5.1); Sodium 142 mmol/L (136-145)
== END 2020-09-05 12:09 ==
LOC: NCHCN 11:49
PROVIDERS: PCP Family Medicine; Visit Provider Family Medicine
DX: I10 Essential (primary) hypertension (principal)
CPT/HCPCS: 80048

== ENCOUNTER 2021-12-22 16:05 | Outpatient (REF) | payer MEDICARE, SELFPAY ==
[2021-12-22 16:37] LABS: Anion Gap 8.8 mmol/L (3-11); BUN 20 mg/dL (7-18); CO2 28.2 mmol/L (21.0-32.0); CREATININE 0.9 mg/dL (0.55-1.02); Calcium 9.7 mg/dL (8.5-10.1); Chloride 105 mmol/L (98-107); Glucose 80 mg/dL (74-106); Potassium 4.9 mmol/L (3.5-5.1); Sodium 142 mmol/L (136-145)
== END 2021-12-22 16:06 | disposition home or self-care (01) ==
LOC: LBN 16:05
PROVIDERS: PCP Family Medicine; Visit Provider Family Medicine
DX: I10 Essential (primary) hypertension (principal)
CPT/HCPCS: 80048

== ENCOUNTER 2023-01-08 17:01 | Outpatient (REF) | payer MEDICARE, SELFPAY ==
[2023-01-08 19:11] LABS: BUN 28 mg/dL (7-18); CREATININE 0.9 mg/dL (0.55-1.02); Calcium 9.5 mg/dL (8.5-10.1); Chloride 105 mmol/L (98-107); Estimated GFR 63.04 (mL/min/1.73m2); Glucose 93 mg/dL (74-106); Potassium 4.6 mmol/L (3.5-5.1); Sodium 141 mmol/L (136-145)
== END 2023-01-08 17:02 | disposition home or self-care (01) ==
LOC: NCHCN 17:01
PROVIDERS: PCP Family Medicine; Visit Provider Family Medicine
DX: I10 Essential (primary) hypertension (principal)
CPT/HCPCS: 80048

== ENCOUNTER 2023-09-13 16:31 | Outpatient (REF) | payer MEDICARE, SELFPAY ==
[2023-09-13 20:57] LABS: Source Nasal/Nares
[2023-09-13 21:07] LABS: Abs Immature Grans 0.02 10^3/uL (0.0-0.06); Absolute Basophil Count 0.02 10^3/uL (0.0-0.2); Absolute Eosinophil Count 0.05 10^3/uL (0.0-0.7); Absolute Lymphocyte Count 1.81 10^3/uL (1.2-3.4); Absolute Monocyte Count 1.12 10^3/uL (0.1-0.8); Absolute Neutrophil Count 6.65 10^3/uL (1.2-6.7); Basophils % 0.2; Eosinophils % 0.5; HCT 36.5 % (36.0-46.0); HGB 11.8 g/dL (11.2-15.7); Immature Grans % 0.2; Lymphocytes % 18.7; MCHC 32.3 % (32.0-36.0); MCV 93 fL (80-95); MPV 11.2 fL (8.0-11.0); Monocytes % 11.6; Neutrophils % 68.8; Platelet Count 162 10^3/uL (130-400); RBC 3.93 10^6/uL (3.93-5.22); RDW 12.1 % (11.7-14.6); RDW-SD 42.2 fL; WBC 9.67 10^3/uL (4.4-10.8)
[2023-09-13 21:32] LABS: ALT 41 U/L (14-59); AST 31 U/L (15-37); Albumin 3.7 g/dL (3.4-5.0); Alkaline Phosphatase 84 U/L (46-116); Anion Gap 12.7 mmol/L (3-11); BUN 16 mg/dL (7-18); Bilirubin, Total 0.9 mg/dL (0.2-1.0); CO2 26.3 mmol/L (21.0-32.0); CREATININE 0.8 mg/dL (0.55-1.02); Calcium 9.2 mg/dL (8.5-10.1); Chloride 100 mmol/L (98-107); Estimated GFR 72.16 (mL/min/1.73m2); Glucose 100 mg/dL (74-106); Potassium 4.3 mmol/L (3.5-5.1); Sodium 139 mmol/L (136-145); Total Protein 6.9 g/dL (6.4-8.2)
[2023-09-13 21:44] LABS: COVID-19 PCR Negative (Negative)
[2023-09-13 21:45] LABS: Bacteria Many HPF (Negative); C & S Indicated? C&S Done As Ordered; Crystals Negative HPF (Negative); Epithelial Cells Rare HPF (Negative); Mucus Negative (Negative); RBC Negative HPF (0-2)
== END 2023-09-13 16:32 | disposition home or self-care (01) ==
LOC: LBN 16:31
PROVIDERS: PCP Family Medicine; Visit Provider Physician Assistant Medical
DX: R50.9 Fever, unspecified (principal)
CPT/HCPCS: 80053; 87077; 87635; 81015; 85025; 87086; 87186

== ENCOUNTER 2023-09-14 16:07 | Emergency (ER) | payer MEDICARE, SELFPAY ==
--- NOTE | 2023-09-14 | DI.CT_ITS ---
Exam(s) CT LUMBAR SPINE RECONS EXAM: CT LUMBAR SPINE RECONS CLINICAL HISTORY: back pain. TECHNIQUE: Imaging Protocol: Axial computed tomography images with coronal and sagittal reformatted images were created and reviewed COMPARISON: No exams were available for comparison FINDINGS: Bones: There are no fractures evident. There is mild degenerative anterolisthesis L3 upon L4.. Als o mild degenerative anterolisthesis L4 upon L5. Mild disc space narrowing at L1-2 and L2-3 levels wi th vacuum from within these disc space also noted as well as within the L4-5 disc space. There is, h owever, only minimal narrowing of the L4-5 disc space. INDIVIDUAL LEVELS: T12-L1:No disc herniation nor canal stenosis. Facet joints unremarkable. No foraminal stenosis. L1-2: Significant disc space narrowing. There is a posterolateral right disc protrusion extending p osteriorly 3 mm and approximately 9 mm wide. This results in mild canal stenosis. Does not appear t o extend into the exiting right neural foramen. Facet joints unremarkable. Facet joints unremarkabl e. No prominent foraminal stenosis. L2-3: Chronic disc space narrowing and vacuum phenomenon. Annular bulging with superimposed postero lateral right disc protrusion, similar to the level above. This results in moderate central spinal c anal stenosis. Mild facet joint arthropathy noted. There is mild foraminal stenosis on the right si de. No foraminal stenosis on the left side. L3-4: Relatively preserved disc height. Degenerative anterolisthesis of L3 upon L4, with approximat jessy 5-6 mm anterior slippage due to advanced facet arthropathy of both facet joints, slightly more pr ominent on the right side. There is mild central canal stenosis evident.. Mild bilateral foraminal stenosis. L4-5: Relatively preserved disc height. Vacuum phenomenon obscured. There is mild anterolisthesis L4 upon L5, approximately 5 mm. There is mild central canal stenosis. Prominent facet arthropathy. Mild foraminal stenosis noted bilaterally. L5-S1: This level exhibits disc space narrowing on its left side. There is no disc herniation nor c entral canal stenosis at this level. There is degenerative change in the left more than right facet joint. No foraminal stenosis on the right side. There is some foraminal stenosis on the left side w hich is vertical foraminal cyst due to the asymmetric height loss of the disc on the left side. This results in some impingement of the exiting nerve root between the underlying bulging annulus and the overlying left pedicle of L5 The visualized sacroiliac joints and sacrum appear unremarkable. PARASPINAL SOFT TISSUES: Visualized paraspinal tissues appear unremarkable. IMPRESSION: 1. Multilevel findings as above with annular bulging and posterolateral right disc protrusions at L1- 2 and L2-3 levels. 2. Degenerative anterolisthesis of L3 upon L4 and L4 upon L5 with mild central canal stenosis at thes e 2 levels evident. Also some foraminal stenosis which is most prominent on the left side at L5-S1 w ith impingement of the exiting nerve root in the exiting left neural foramen at this level, as descri bed above. 3. Multilevel facet arthropathy. RADIATION DOSE DELIVERED: Total DLP DATA REPOSITORY: All CT scans at this facility are submitted to the National Radiology Data Registry (NRDR) Dose Index Registry (DIR) with the [employer] ([employer]). RADIATION OPTIMIZATION: All CT scans at this facility use at least one of these dose optimization te chniques: automated exposure control; mA and/or kV adjustment per patient size (includes targeted exa ms where dose is matched to clinical indication); or iterative reconstruction.
--- NOTE | 2023-09-14 | DI.CT_ITS ---
Exam(s) CT RENAL COLIC WO EXAM: CT RENAL COLIC WO CLINICAL HISTORY: bilateral back pain, UTI. TECHNIQUE: Imaging Protocol: Axial computed tomography images with coronal and sagittal reformatted images were created and reviewed CONTRAST MATERIAL: Intravenous: none Oral: None COMPARISON: CT CT CHEST PE ABD PELVIS W from 09/13/2019 FINDINGS: VISUALIZED LUNG BASES: Small nodule in the right lung base is unchanged from 2019 and therefore benig n. No pleural effusions.. ABDOMEN: Limitations-motion artifact There is no ascites. LIVER: Multiple calcifications in the liver and spleen are probably granulomas. GALLBLADDER/BILIARY: No obvious gallbladder pathology. CBD is not dilated. PANCREAS: No evidence of pancreatic mass nor dilatation of the pancreatic duct. SPLEEN: Spleen size normal. Multiple calcifications in the spleen noted. Most probably granulomas. ADRENALS: There are no significant adrenal masses. KIDNEYS:There is a tiny 1-2 millimeter nonobstructive calculus in the right kidney. No other focal r ight kidney findings. There is a partially exophytic cyst off the posterior cortex of the left kidne y measuring 2 by 1.4 cm. Unchanged from previous. Does not require further imaging workup. No jacques d renal masses. No calculi nor hydronephrosis. . ABDOMINAL AORTA: Abdominal aorta is not enlarged. LYMPH NODES: There is no retroperitoneal nor paraaortic adenopathy. ABDOMINAL WALL: No evidence of significant anterior abdominal wall nor inguinal hernia. GI: There are multiple small bowel loops which are fluid-filled and upper normal diameters, measuring up to 2.6 cm. No true bowel obstruction or free air. Also fluid-filled colon probable diarrhea sta te. Sigmoid diverticulosis-extensive. No obvious acute diverticulitis. PELVIS: LYMPH NODES: There is no intrapelvic nor inguinal adenopathy. GI: No evidence of appendicitis.No evidence of sigmoid diverticulitis. URINARY BLADDER: No calculi nor obvious masses evident mild cystocele. REPRODUCTIVE: Uterus atrophic or surgically absent. No abnormal adnexal masses. OSSEOUS: No significant osseous lesions. Mild degenerative anterolisthesis L3 upon L4. IMPRESSION: 1. Interpretation somewhat limited by the amount of motion artifact. 2. Appearance of the bowel loops reflects ileus and probable diarrhea state. 3. Multiple calcifications in the liver and spleen are probably granulomas and unchanged from previou s study. 4. Tiny nonobstructive calculus in the right ureter. 5. Uterus probably surgically absent. No abnormal adnexal findings. 6. Extensive sigmoid diverticulosis. No obvious acute diverticulitis. RADIATION DOSE DELIVERED: Total DLP DATA REPOSITORY: All CT scans at this facility are submitted to the National Radiology Data Registry (NRDR) Dose Index Registry (DIR) with the [employer] (A[employer]). RADIATION OPTIMIZATION: All CT scans at this facility use at least one of these dose optimization te chniques: automated exposure control; mA and/or kV adjustment per patient size (includes targeted exa ms where dose is matched to clinical indication); or iterative reconstruction.
[2023-09-14 16:19] VITALS: BP 160/92; PULSE 109; RESP 18; TEMP 37.6; O2SAT 98
[2023-09-14] MEDS: Ketorolac 15 MG/ML VIAL IVP (17:10)
[2023-09-14 17:26] LABS: Abs Immature Grans 0.03 10^3/uL (0.0-0.06); Absolute Basophil Count 0.02 10^3/uL (0.0-0.2); Absolute Eosinophil Count 0.03 10^3/uL (0.0-0.7); Absolute Lymphocyte Count 1.21 10^3/uL (1.2-3.4); Absolute Monocyte Count 0.98 10^3/uL (0.1-0.8); Absolute Neutrophil Count 8.08 10^3/uL (1.2-6.7); Basophils % 0.2; Eosinophils % 0.3; HCT 37.5 % (36.0-46.0); HGB 12.4 g/dL (11.2-15.7); Immature Grans % 0.3; Lymphocytes % 11.7; MCH 30.4 pg (27.0-33.0); MCHC 33.1 % (32.0-36.0); MCV 92 fL (80-95); MPV 10.4 fL (8.0-11.0); Monocytes % 9.5; Platelet Count 190 10^3/uL (130-400); RBC 4.08 10^6/uL (3.93-5.22); RDW 12.2 % (11.7-14.6); RDW-SD 41.4 fL; WBC 10.35 10^3/uL (4.4-10.8)
[2023-09-14 17:30] VITALS: BP 144/72; PULSE 82; RESP 20; O2SAT 99
[2023-09-14 17:37] LABS: Anion Gap 9.5 mmol/L (3-11); BUN 29 mg/dL (7-18); CO2 26.5 mmol/L (21.0-32.0); Calcium 9.7 mg/dL (8.5-10.1); Chloride 98 mmol/L (98-107); Estimated GFR 55.21 (mL/min/1.73m2); Glucose 107 mg/dL (74-106); Potassium 4.3 mmol/L (3.5-5.1); Sodium 134 mmol/L (136-145)
--- NOTE | 2023-09-14 18:12 | DI.VRAD_ITS ---
PROCEDURE INFORMATION: Exam: CT Abdomen And Pelvis Without Contrast Exam date and time: 09/14/2023 17:38 Age: 83 years old Clinical indication: Abdominal pain; Patient HX: Bilat flank pain TECHNIQUE: Imaging protocol: Computed tomography of the abdomen and pelvis without contrast. COMPARISON: CT CHEST PE ABD PELVIS W 09/13/2019 21:58 FINDINGS: Lungs: Subcentimeter right lower lobe pulmonary nodule. Follow-up as per institutional protocol. Diaphragm: Elevated left hemidiaphragm. Liver: Small hepatic calcifications compatible with benign granulomata. Gallbladder and bile ducts: No calcified stones. No ductal dilation. Pancreas: No gross acute pathology in pancreas, motion artifact. Spleen: Small splenic calcifications compatible with benign granulomata. Adrenal glands: No mass. Kidneys and ureters: No left hydronephrosis. Stomach and bowel: Colonic diverticulosis without diverticulitis. Fluid and air-fluid levels in colon without wall thickening suggesting diarrhea. Fluid-filled distention of mid to distal small bowel, multiple air-fluid levels, difficult to assess small-bowel wall given motion and noncontrast technique. No definite focal transition point. Appendix: No evidence of appendicitis. Intraperitoneal space: No free air. No significant fluid collection. Vasculature: No abdominal aortic aneurysm. Lymph nodes: No significantly enlarged lymph nodes. Urinary bladder: The urinary bladder is distended. No urinary bladder wall thickening. Reproductive: Hysterectomy. Bones/joints: A tiny right renal calculus appears malignant cortical than medullary. No definite left-sided stones. No right hydronephrosis. No acute fracture or subluxation. Soft tissues: No suspicious lesions. Other findings: Motion artifact in the abdomen. IMPRESSION: 1. Favor a mild multifocal enteritis and colitis without obstruction. 2. Additional findings as described. PROCEDURE INFORMATION: Exam: CT Lumbar Spine With Contrast Exam date and time: 09/14/2023 17:38 Age: 83 years old Clinical indication: Abdominal pain; Patient HX: Bilat flank pain TECHNIQUE: Imaging protocol: Computed tomography of the lumbar spine with contrast. COMPARISON: MR LUMBAR SPINE WO 09/14/2019 10:35 FINDINGS: Bones/joints: The bones are demineralized. Degenerative grade 1 anterolisthesis L3 over L4 and L4 over L5. Multilevel disc space narrowing, vacuum disc phenomenon, broad-based disc bulges and facet hypertrophy. Mild central canal stenosis L3-L4, mild multilevel neural foraminal stenosis. No acute fracture or subluxation. Soft tissues: Unremarkable. IMPRESSION: 1. No acute bony pathology. 2. Degenerative changes. Dictated and Authenticated by: Jewell Chong MD. Ordering:PABLO Roberson MD
--- NOTE | 2023-09-14 19:01 | ED.GENADUL_ITS ---
Discharge Plan Disposition Patient Disposition: Home Condition: Stable Discharge Details Clinical Impression: Urinary tract infection Primary Care Provider: Hilario Fisher ED Provider: Karol Mondragon Home Meds and New Rx's Prescriptions: Continued lisinopril 20 MG tablet 20 mg PO DAILY Centrum Silver 1 EACH tablet 1 ea PO DAILY One-Per-Day [place]-3 1 EACH capsule,delayed release(DR/EC) 1 ea PO DAILY cephalexin 500 mg capsule Patient Comments: Take 1 capsule by mouth twice a day ibuprofen 200 mg tablet 600 mg PO Q6H PRN (Reason: pain) Qty: 30 0RF Discharge Instructions Instructions: Urinary Tract Infection in Women (ED) Additional Instructions: Drink 6 to 8 glasses of water daily to stay well-hydrated take antibiotics as prescribe To complete the course See your primary care provider for new or worsening symptoms Referrals: Hilario Fisher [Primary Care Provider] - Medical Decision Making Patient presents with low back pain currently being treated for suspected urinary tract infection does report fever for the past 5 days. Will obtain urine kidney function CBC renal CT scan to evaluate for pyelonephritis/kidney stone. We will ask for spinal recons to evaluate for compression fracture but in the setting of a fever I doubt this is the case. She will be given Toradol 15 mg IV push for pain management. Hemodynamically stable and will be monitored while awaiting. She has no radicular pain. No saddle anesthesia no bowel or bladder dysfunction reported. Her CAT scan results are reviewed and there is no evidence of pyelonephritis by imaging or renal colic. Urine is still refluxing for culture with trace leukocyte Estrace bacteria and white blood cells. I do not think she technically failed her course of antibiotics that she was only started on it yesterday. She did receive an IM injection yesterday which I believe was ceftriaxone I will give her another dose of ceftriaxone 1 g IV piggyback and will recommend that she continue taking her oral antibiotics starting tomorrow morning. Medical Records Medical records reviewed: Yes I reviewed the patient's medical records. Imaging Data Radiologic Study: Imaging: CT Scan Radiologist's impression: Exam(s) PROCEDURE INFORMATION: Exam: CT Abdomen And Pelvis Without Contrast Exam date and time: 09/14/2023 17:38 Age: 83 years old Clinical indication: Abdominal pain; Patient HX: Bilat flank pain TECHNIQUE: Imaging protocol: Computed tomography of the abdomen and pelvis without contrast. COMPARISON: CT CHEST PE ABD PELVIS W 09/13/2019 21:58 FINDINGS: Lungs: Subcentimeter right lower lobe pulmonary nodule. Follow-up as per institutional protocol. Diaphragm: Elevated left hemidiaphragm. Liver: Small hepatic calcifications compatible with benign granulomata. Gallbladder and bile ducts: No calcified stones. No ductal dilation. Pancreas: No gross acute pathology in pancreas, motion artifact. Spleen: Small splenic calcifications compatible with benign granulomata. Adrenal glands: No mass. Kidneys and ureters: No left hydronephrosis. Stomach and bowel: Colonic diverticulosis without diverticulitis. Fluid and air-fluid levels in colon without wall thickening suggesting diarrhea. Fluid-filled distention of mid to distal small bowel, multiple air-fluid levels, difficult to assess small-bowel wall given motion and noncontrast technique. No definite focal transition point. Appendix: No evidence of appendicitis. Intraperitoneal space: No free air. No significant fluid collection. Vasculature: No abdominal aortic aneurysm. Lymph nodes: No significantly enlarged lymph nodes. Urinary bladder: The urinary bladder is distended. No urinary bladder wall thickening. Reproductive: Hysterectomy. Bones/joints: A tiny right renal calculus appears malignant cortical than medullary. No definite left-sided stones. No right hydronephrosis. No acute fracture or subluxation. Soft tissues: No suspicious lesions. Other findings: Motion artifact in the abdomen. IMPRESSION: 1. Favor a mild multifocal enteritis and colitis without obstruction. 2. Additional findings as described. PROCEDURE INFORMATION: Exam: CT Lumbar Spine With Contrast Exam date and time: 09/14/2023 17:38 Age: 83 years old Clinical indication: Abdominal pain; Patient HX: Bilat flank pain TECHNIQUE: Imaging protocol: Computed tomography of the lumbar spine with contrast. COMPARISON: MR LUMBAR SPINE WO 09/14/2019 10:35 FINDINGS: Bones/joints: The bones are demineralized. Degenerative grade 1 anterolisthesis L3 over L4 and L4 over L5. Multilevel disc space narrowing, vacuum disc phenomenon, broad-based disc bulges and facet hypertrophy. Mild central canal stenosis L3-L4, mild multilevel neural foraminal stenosis. No acute fracture or subluxation. Soft tissues: Unremarkable. IMPRESSION: 1. No acute bony pathology. 2. Degenerative changes. Dictated and Authenticated by: Jewell Chong MD. Ordering:PABLO Roberson MD Lab Data Lab results reviewed: Yes I reviewed the patient's lab results. HPI General Mode of arrival: ambulatory . Date/Time Provider Initiated Documentation: 09/14/23 16:12 . Limitations to Documentation: no limitations . Information obtained by: patient . HPI Narrative: Is a 83-year-old female patient presents for evaluation of ongoing low back pain reported mostly on the left but states it radiates across her low back. Her primary care provider has her on antibiotic for suspected bladder infection. She states she has been running fever for 5 days she has been using acetaminophen for her symptoms. She states the pain got worse tonight. She has had no chest pain shortness of breath cough signs of upper respiratory infection. There is no rash or lesion and pain is bilateral so doubt shingles Related Data Home Medications Medication Instructions Recorded Confirmed lisinopril 20 mg tablet 20 mg PO DAILY 06/24/15 09/14/23 [id number] acid 0.4 1 ea PO DAILY 06/24/15 09/14/23 mg-lycopene 300 mcg-lutein 250 mcg tablet (Centrum Silver) omega-3 fatty acids-fish oil 684 1 ea PO DAILY 06/24/15 09/14/23 mg-1,200 mg capsule,delayed release (One-Per-Day [place]-3) ibuprofen 200 mg tablet 600 mg (3 x 200 mg) PO Q6H PRN 09/15/19 10/07/19 pain #30 tabs cephalexin 500 mg capsule mg 09/14/23 Previous Rx's Medication Instructions Recorded ibuprofen 200 mg tablet 600 mg (3 x 200 mg) PO Q6H PRN 09/15/19 pain #30 tabs Allergies Allergy/AdvReac Type Severity Reaction Status Date / Time Penicillins Allergy Intermediate Unverified 09/14/23 16:24 doxycycline monohydrate Allergy HIVES Unverified 09/14/23 16:24 [From Vibramycin] lactose AdvReac Mild GI upset Unverified 09/14/23 16:24 General Stated Complaint: Orthopedic SEBASTIAN: 3 Review of Systems All systems reviewed & are unremarkable except as noted in HPI and below PFSH All Active Problems Urinary tract infection (Acute) Fracture of fifth metatarsal bone of right foot (Acute) Degenerative disc disease (Acute) Muscle spasm (Acute) Corneal dystrophy (Chronic) GERD (gastroesophageal reflux disease) (Chronic) Hypertension (Chronic) Presence of right artificial knee joint (Acute 01/23/16) Hiatal hernia (Acute) Primary osteoarthritis of right knee (Acute 01/23/16) Dysphagia (Chronic) H/O surgical procedure (Chronic) a. Right TKR 01/23/2016 b. bilateral cataract surgery c. hysterectomy with bilateral salpingo-oophrectomy, as well as incidental appendectomy d. T&A e. gastroscopy with balloon dilatation as well as colonoscopy Medical History Corneal dystrophy GERD (gastroesophageal reflux disease) Hiatal hernia Hypertension Surgical History Presence of right artificial knee joint (01/23/16) Social History Smoking/Tobacco Use Status: Never Smoking risk assessment performed?: Yes Alcohol Intake: never Drug use: Never Current gender identity: female Do you feel safe at home: Yes Do you feel safe in your relationship?: Yes Exam Const General: cooperative, comfortable and no acute distress Nutritional Appearance: average body habitus Orientation: alert, awake and oriented x3 (Some short-term memory and cognitive impairment noted) HENMT Head: normal to inspection, normocephalic and atraumatic Mouth: oral mucosae normal Chest Chest: normal inspection of the chest Resp Effort & Inspection: normal respiratory effort Auscultation: clear to auscultation bilaterally Cardio Rate: regular rate Rhythm: regular rhythm GI Inspection: normal to inspection Palpation: soft Skin General skin exam: no rashes or lesions noted Neuro General: patient alert, patient awake and no focal motor deficits Extrem General: normal to inspection and full ROM Course Vital Signs Vital signs: Vital Signs Temperature 37.6 C H 09/14/23 16:19 Pulse 109 H 09/14/23 16:19 Respiratory Rate 18 09/14/23 16:19 Blood Pressure 160/92 H 09/14/23 16:19 Pulse Oximetry 98 09/14/23 16:19 Temperature 37.6 C H 09/14/23 16:19 Temperature Source Skin 09/14/23 16:19 Pulse 109 H 09/14/23 16:19 Respiratory Rate 18 09/14/23 16:19 Respiratory Effort Normal 09/14/23 17:13 Blood Pressure 160/92 H 09/14/23 16:19 Blood Pressure Position Sitting 09/14/23 16:19 Pulse Oximetry 98 09/14/23 16:19 Oxygen Delivery Method Room Air 09/14/23 16:19 Oxygen Flow Rate 0 09/14/23 16:19 Pain Level 10 09/14/23 16:19 Lab/Test Results Lab/Test Results: Laboratory Tests Range/Units 09/14/23 17:00 WBC (4.4-10.8) 10^3/uL 10.35 RBC (3.93-5.22) 10^6/uL 4.08 Hgb (11.2-15.7) g/dL 12.4 Hct (36.0-46.0) % 37.5 MCV (80-95) fL 92 MCH (27.0-33.0) pg 30.4 MCHC (32.0-36.0) % 33.1 RDW (11.7-14.6) % 12.2 Plt Count (130-400) 10^3/uL 190 MPV (8.0-11.0) fL 10.4 Immature Gran % 0.3 Neutrophils % 78.0 Lymphocytes % 11.7 Monocytes % 9.5 Eosinophils % 0.3 Basophils % 0.2 Nucleated RBC % (0.0-0.3) % 0.0 Absolute Neutrophils (1.2-6.7) 10^3/uL 8.08 H Absolute Lymphocytes (1.2-3.4) 10^3/uL 1.21 Absolute Monocytes (0.1-0.8) 10^3/uL 0.98 H Absolute Eosinophils (0.0-0.7) 10^3/uL 0.03 Absolute Basophils (0.0-0.2) 10^3/uL 0.02 Sodium (136-145) mmol/L 134 L Potassium (3.5-5.1) mmol/L 4.3 Chloride (98-107) mmol/L 98 Carbon Dioxide (21.0-32.0) mmol/L 26.5 Anion Gap (3-11) mmol/L 9.5 BUN (7-18) mg/dL 29 H Creatinine (0.55-1.02) mg/dL 1.0 Est GFR (CKD-EPI 2020) (mL/min/1.73m2) 55.21 Glucose (74-106) mg/dL 107 H Calcium (8.5-10.1) mg/dL 9.7
[2023-09-14] MEDS: Normal Saline 1,000 ML 1000 ML IV (19:43)
[2023-09-14 19:47] LABS: Bilirubin Negative (Negative); Blood Negative (Negative); Clarity Clear (Clear); Glucose Negative (Negative); Ketones Negative (Negative); Leukocyte Esterase Trace (Negative); Nitrite Negative (Negative); Urobilinogen 0.2 mg/dL (Up to 0.2); pH 5.5 (5-8)
[2023-09-14 19:57] LABS: Bacteria Moderate HPF (Negative); Crystals Negative HPF (Negative); Epithelial Cells Rare HPF (Negative); Mucus Trace (Negative)
[2023-09-14 19:58] LABS: C & S Indicated? Yes
[2023-09-14 20:11] VITALS: BP 136/64; PULSE 72; RESP 20; O2SAT 99
[2023-09-14 20:17] LABS: C Diff PCR Negative (Negative)
[2023-09-14] MEDS: cefTRIAXone 1 GM/50 ML BAG IVPB (20:40)
[2023-09-14] MEDS: Lidocaine 5% Patch 1 PATCH TP (20:47)
[2023-09-14 21:26] VITALS: BP 126/73; PULSE 96; RESP 18; O2SAT 100
== END 2023-09-14 20:15 | disposition home or self-care (01) ==
LOC: ER 20:12 → RED 22:09
PROVIDERS: Emergency Provider Nurse Practitioner Acute Care; PCP Family Medicine
DX: N39.0 Urinary tract infection, site not specified (principal); N20.0 Calculus of kidney; K57.30 Diverticulosis of large intestine without perforation or abscess without bleeding; I10 Essential (primary) hypertension
CPT/HCPCS: 80048; 87493; 96365; 96375; 99284; 74176; 81003; 81015; 85025; 87086; J0696; J1885

== ENCOUNTER 2024-05-25 09:08 | Outpatient (CLI) | payer MEDICARE, SELFPAY ==
--- NOTE | 2024-05-25 08:15 | DI.RAD_ITS ---
Exam(s) XR KNEE LT 3V AP,LAT,SHAGGY EXAM: XR KNEE LT 3V AP,LAT,SHAGGY CLINICAL HISTORY: knee pain. TECHNIQUE: 2D digital imaging was performed of the left knee. Three images were obtained. AP, late ral and PA tunnel views were obtained. COMPARISON: CR LEFT KNEE 3 VIEW COMPLETE from 06/22/2012 FINDINGS: BONES: No acute fracture is present. No bony destructive lesion is seen. JOINTS: There is marked narrowing of the lateral femoral tibial joint. There osteophytes in all 3 [place] int compartments. There is a small joint effusion. No loose body. SOFT TISSUE: Normal. IMPRESSION: There are marked degenerative changes seen in the left knee. DATA REPOSITORY: RADIATION DOSE DELIVERED:
== END 2024-05-25 09:09 | disposition home or self-care (01) ==
LOC: DIORS 09:08
PROVIDERS: PCP Family Medicine; Referring Provider Family Medicine
DX: M25.569 Pain in unspecified knee (principal); M17.12 Unilateral primary osteoarthritis, left knee
CPT/HCPCS: 20610; 73562; 99213; J1010

== ENCOUNTER → 2024-08-10 10:32 | Outpatient (BNVA) | payer MEDICARE, SELFPAY | PROVIDERS: PCP Family Medicine; Referring Provider Family Medicine; Visit Provider Student in an Organized Health Care Education/Training Program | DX: M17.12 Unilateral primary osteoarthritis, left knee (principal) | CPT/HCPCS: 99213 ==

== ENCOUNTER 2024-09-09 13:22 | Outpatient (REF) | payer MEDICARE, SELFPAY ==
[2024-09-09 15:50] LABS: Anion Gap 8.6 mmol/L (3-11); BUN 40 mg/dL (7-18); CO2 25.4 mmol/L (21.0-32.0); CREATININE 1.2 mg/dL (0.55-1.02); Calcium 9.6 mg/dL (8.5-10.1); Chloride 109 mmol/L (98-107); Estimated GFR 44.08 (mL/min/1.73m2); Glucose 94 mg/dL (74-106); Potassium 4.8 mmol/L (3.5-5.1); Sodium 143 mmol/L (136-145)
== END 2024-09-09 13:23 | disposition home or self-care (01) ==
LOC: NCHCN 13:22
PROVIDERS: PCP Student in an Organized Health Care Education/Training Program; Visit Provider Student in an Organized Health Care Education/Training Program
DX: I10 Essential (primary) hypertension (principal)
CPT/HCPCS: 80048

== ENCOUNTER 2024-10-30 00:24 | Outpatient (CLI) | payer MEDICARE, SELFPAY ==
--- NOTE | 2024-10-30 | DI.US_ITS ---
APPROVED REPORT EXAM: Comprehensive 2D, Doppler, and color-flow Echocardiogram Patient Location: Out-Patient Needle Grader: Emily Irwin RDCS (AE) Indications: New systolic murmur Other Information Study Quality: Adequate Conclusion Mild concentric left ventricular hypertrophy. Ejection fraction is 60%. Wall motion is normal Normal right ventricular size and function Both atria are mildly enlarged. There is the incidental finding of an atrial septal aneurysm Aortic valve is sclerotic and trileaflet. There is no hemodynamically significant aortic stenosis. There is no aortic regurgitation Mitral annular calcification, trace mitral regurgitation Ascending aorta measures 3.41 cm Wall motion Left Ventricle The left ventricle is normal size. The left ventricular systolic function is normal. The left ventric ular ejection fraction is within the normal range. Mild concentric left ventricular hypertrophy. Ther e is normal LV segmental wall motion. There is no ventricular septal defect visualized. LVEF is 60%. Right Ventricle The right ventricle is normal size. The right ventricular systolic function is normal. Atria Left atrium is mildly dilated. Right atrium is mildly dilated. Atrial septal aneurysm is present. Aortic Valve The Aortic valve is sclerotic. Aortic valve is trileaflet. There is no aortic valvular stenosis. No a ortic regurgitation is present. Mitral Valve Mitral annular calcification. No evidence of mitral valve stenosis. Trace mitral regurgitation. Tricuspid Valve The tricuspid valve is normal in structure. There is no tricuspid valve stenosis. Trace tricuspid reg urgitation. Unable to assess PA pressure. Pulmonic Valve The pulmonary valve is normal in structure. There is no pulmonic valvular stenosis. There is no pulmo madonna valvular regurgitation. Great Vessels The aortic root is normal in size. The ascending aorta is mildly dilated. Aortic arch is not well vis ualized. IVC is normal in size and collapses >50% with inspiration. Pericardium There is no pericardial effusion. 2D Dimensions IVSD d PLAX 1.20 cm F: 0.6-1.0 Ao Root d 3.11 cm F: 2.7 - 3.3 LVPW d PLAX 1.21 cm F: 0.6 - 1.0 Ao Asc Diam d 3.41 cm F: 2.3 - 3.1 LVID d PLAX 3.30 cm F: 3.8 - 5.2 LVDs 2.32 cm F: 2.2 - 3.5 LV EF Teichholz 56.7 % FS 28.81 % LV EDV (Teich) 43.0 mL LV ESV (Teich) 18.6 mL M-Mode TAPSE 2.60 cm (M/F) >1.7 Auto EF LV EDV A4C 70.1 mL LV EDV A2C 87.3 mL LV EDV BP 80.0 mL LV ESV A4C 29.3 mL LV ESV A2C 38.0 mL LV ESV BP 33.8 mL LVEF(%) A4C 58.2 % LVEF(%) A2C 56.5 % LVEF(%) BP 57.8 % LV SV A4C 40.8 ml LV SV A2C 49.4 ml LV SV BP 46.2 ml LV CO A4C 3.3 L/min LV CO A2C 3.4 L/min LV CO BP 3.3 L/min HR A4C 80.00 BPM HR A2C 69.24 BPM LV EDV Index (BP) LA Volume LA Length A4C 5.3 cm LA Length A2C 5.0 cm LA Area A4C s 20.81 cm2 LA Area A2C s 20.46 cm2 LA Vol A4C A-L 69.90 mL LA Vol A2C A-L 70.44 mL LA Vol Biplane A-L 71.6 mL LA Vol/BSA A4C A-L LA Vol/BSA A2C A-L LA Vol/BSA BP A-L 42.4 mL/m2 LA Vol A4C MOD 64.5 mL LA Vol A2C MOD 64.9 mL LA Vol BP MOD 65.8 mL RA Volume RA Area A4C 10.5 cm2 RA ESV A4C (A-L) 21.4mL RA Vol/BSA A4C A-L RA Length A4C 4.4 cm RA ESV A4C (MOD) 19.8mL LV Diastology MV E' medial 0.074 (>0.07 m/s) MV E Vmax 1.21 (0.4-1.3 m/s) MV E/E' MED 16.36 (<14) MV A Vmax 1.20 (0.4-1.3 m/s) E/A Ratio 1.0 Aortic Valve AoV Vmax 1.87 m/s LVOT Vmax 1.43 m/s AoV Peak Grad 14.0 mmHg LVOT Peak Grad 8.2 mmHg AoV Area (Vmax) 2.48 cm2 LVOT VTI 0.314 m AoV VTI 0.417 m LVOT Mean Grad 4.4 mmHg AoV Mean Booker. 1.23 m/s LVOT SV 101.97 mL AoV Mean Grad 7.0 mmHg LVOT Diam s 2.00 cm AoV Area (VTI) 2.44 cm2 AV Regurg Peak Gr. 14.01 mmHg Velocity Ratio 0.76 Mitral Valve MV DT 149 (160-240 msec) MV Vmax TIPS 1.38 m/s MV Mean Grad 4.2 (<2mmHg) MV VTI 0.395 m Pulmonary Valve PV Vmax 0.97 (0.5-1.5 m/s) RVOT Vmax 0.75 m/s PV Peak Grad 3.8 mmHg RVOT Peak Gr. 2.3 mmHg PV Mean Booker 0.69 m/s RVOT VTI 0.198 m PV Mean Grad 2.1 mmHg RVOT Mean Gr. 1.4 mmHg Tricuspid Valve RA Pressure 3.00 mmHg TV S' 0.14 m/s
== END 2024-10-30 00:44 ==
LOC: DI 00:24
PROVIDERS: PCP Student in an Organized Health Care Education/Training Program; Visit Provider Student in an Organized Health Care Education/Training Program
DX: I51.7 Cardiomegaly
CPT/HCPCS: 93306

== ENCOUNTER 2024-11-13 12:27 | Outpatient (CLI) | payer MEDICARE, SELFPAY | END 2024-11-13 12:28 | disposition home or self-care (01) | LOC: DI.CARD 12:35 | PROVIDERS: PCP Student in an Organized Health Care Education/Training Program; Referring Provider Student in an Organized Health Care Education/Training Program; Visit Provider Internal Medicine Cardiovascular Disease | DX: R01.1 Cardiac murmur, unspecified (principal); I42.2 Other hypertrophic cardiomyopathy; Q21.10 Atrial septal defect, unspecified | CPT/HCPCS: 93010 ==

== ENCOUNTER → 2024-11-13 12:27 | Outpatient (BNVA) | payer MEDICARE, SELFPAY | PROVIDERS: PCP Student in an Organized Health Care Education/Training Program; Referring Provider Student in an Organized Health Care Education/Training Program; Visit Provider Internal Medicine Cardiovascular Disease | DX: I35.8 Other nonrheumatic aortic valve disorders (principal); I10 Essential (primary) hypertension | CPT/HCPCS: 99214 ==

== ENCOUNTER 2024-12-07 11:09 | Emergency (ER) | payer MEDICARE, SELFPAY ==
[2024-12-07 11:16] VITALS: BP 161/87; PULSE 74; RESP 10; TEMP 36.7; O2SAT 98
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
--- NOTE | 2024-12-07 12:04 | DI.RAD_ITS ---
Exam(s) XR WRIST RT COMPL NAVICULAR EXAM: XR WRIST RT COMPL NAVICULAR CLINICAL HISTORY: R wrist pain. TECHNIQUE: 2D digital imaging was performed. Three views. COMPARISON: CR XR WRIST RT COMPLETE from 08/27/2019 FINDINGS: BONES: No acute fracture is present. No bony destructive lesion is seen. JOINTS: The carpal bones are normally aligned. Severe degenerative changes are noted at the 1st car pal metacarpal joint. There is prominent periarticular spurring. SOFT TISSUE: Normal swelling around carpal region. IMPRESSION: Severe degenerative changes at the 1st carpal metacarpal joint DATA REPOSITORY: RADIATION DOSE DELIVERED:
[2024-12-07 12:50] VITALS: BP 148/88; PULSE 86; RESP 16; O2SAT 99
== END 2024-12-07 12:51 | disposition home or self-care (01) ==
PROVIDERS: Emergency Provider Physician Assistant; PCP Student in an Organized Health Care Education/Training Program
DX: S63.501A Unspecified sprain of right wrist, initial encounter (principal); I10 Essential (primary) hypertension; V47.9XXA Unspecified car occupant injured in collision with fixed or stationary object in traffic accident, initial encounter
CPT/HCPCS: 99283; 73110

== ENCOUNTER 2025-05-06 13:30 | Emergency (ER) | payer MEDICARE, SELFPAY ==
--- NOTE | 2025-05-06 13:30 | DI.CT_ITS ---
Exam(s) CT CHEST WO EXAM: CT CHEST WO CLINICAL HISTORY: anterior chest pain s/p fall 3 days ago. TECHNIQUE: Multi planar reconstructions were performed. CONTRAST MATERIAL: None COMPARISON: No exams were available for comparison FINDINGS: CHEST: LUNGS: There is a small nodule in the lateral basal segment of the right lower lobe measures 3 mm. No other significant nodules. No infiltrates nor lung contusions. No pneumothorax. MEDIASTINUM: There is a sternal buckle fracture in the body of the sternum 1.8 cm below the angle of Erik. No significant displacement. Also noted is slight loss of height of superior endplate of T1, T3, T4, and T5, age indeterminate. There are no obvious acute fracture lines evident in these vertebral bodies. The there is no evidence of significant anterior mediastinal hematoma.No hilar nor mediastinal adenopathy. No incidental axillary adenopathy. CARDIAC: Cardiomegaly. No pericardial effusion. The diameter of ascending thoracic aorta is upper normal. VISUALIZED UPPER ABDOMEN:No ascites. Calcified granulomas noted in the liver and spleen. Benign exophytic cyst soft low left kidney. No adrenal findings on the right. Thickened adrenal gland on the left probably hyperplasia. OSSEOUS: Sternal fractures described above. No clavicle fractures seen. No obvious rib fractures.. IMPRESSION: 1. There is a buckle-type fracture of the sternal body, without significant displacement and without associated anterior mediastinal hematoma. There are no obvious rib fractures. 2. There is some height loss of superior endplates of T1, T3, T4, and T5 vertebral bodies, age indeterminate. No retropulsion. 3. Cardiomegaly. No pericardial effusion. No evidence of pulmonary edema. No pleural effusions. Report called by myself to ER physician 05/06/2025 at 3:18 p.m. RADIATION DOSE DELIVERED: 259.29mGy.cm Total DLP DATA REPOSITORY: All CT scans at this facility are submitted to the National Radiology Data Registry (NRDR) Dose Index Registry (DIR) with the [employer] (A[employer]). RADIATION OPTIMIZATION: All CT scans at this facility use at least one of these dose optimization techniques: automated exposure control; mA and/or kV adjustment per patient size (includes targeted exams where dose is matched to clinical indication); or iterative reconstruction.
--- NOTE | 2025-05-06 13:30 | DI.CT_ITS ---
Exam(s) CT HEAD CERVICAL SPINE WO EXAM: CT HEAD CERVICAL SPINE WO CLINICAL HISTORY: pain s/p fall 3 days ago. TECHNIQUE: Imaging Protocol: Axial computed tomography images with coronal and sagittal reformatted images were created and reviewed COMPARISON: CT CT LUMBAR SPINE RECONS from 09/14/2023 FINDINGS: BRAIN: There are no skull fractures nor fluid in the visualized paranasal sinuses. There is no evidence of intracranial hemorrhage, mass effect, or shift of midline structures. There are no extra-axial fluid collections. The ventricles are not enlarged or shifted and there is no blood within the ventricular system nor within the basal cisterns. CERVICAL SPINE: There is no evidence of fracture nor listhesis. No significant prevertebral soft tissue swelling. Straightening of the cervical curvature is noted. Chronic disc space narrowing at multiple levels, most prominent at the C 6-7 level. There also Luschka joint osteophytes. There is multilevel facet arthropathy but no facet joint malalignment. There is no significant facet joint malalignment. No significant osseous lesions evident. IMPRESSION: No acute intracranial findings on this noninfused CT scan of the brain. No evidence of cervical spine fracture, malalignment, nor acute compromise of the cervical spinal canal. Multilevel degenerative disc disease and facet arthropathy. Report called by myself to ER 05/06/2025 2:50 p.m. RADIATION DOSE DELIVERED: 1,169.18mGy.cm Total DLP DATA REPOSITORY: All CT scans at this facility are submitted to the National Radiology Data Registry (NRDR) Dose Index Registry (DIR) with the [employer] (ACR). RADIATION OPTIMIZATION: All CT scans at this facility use at least one of these dose optimization techniques: automated exposure control; mA and/or kV adjustment per patient size (includes targeted exams where dose is matched to clinical indication); or iterative reconstruction.
[2025-05-06 13:33] VITALS: BP 154/93; PULSE 100; RESP 18; TEMP 36.6; O2SAT 98
[2025-05-06] MEDS: ACETAMINOPHEN 1,000 MG/100 ML BAG 400 MG (14:01)
[2025-05-06 14:07] LABS: Abs Immature Grans 0.02 10^3/uL (0.0-0.06); Absolute Basophil Count 0.02 10^3/uL (0.0-0.2); Absolute Eosinophil Count 0.28 10^3/uL (0.0-0.7); Absolute Lymphocyte Count 1.61 10^3/uL (1.2-3.4); Absolute Monocyte Count 0.76 10^3/uL (0.1-0.8); Absolute Neutrophil Count 5.69 10^3/uL (1.2-6.7); Basophils % 0.2 %; Eosinophils % 3.3 %; HCT 40.1 % (36.0-46.0); HGB 13.2 g/dL (11.2-15.7); Immature Grans % 0.2 %; Lymphocytes % 19.2 %; MCH 30.1 pg (27.0-33.0); MCHC 32.9 % (32.0-36.0); MCV 92 fL (80-95); MPV 10.3 fL (8.0-11.0); Monocytes % 9.1 %; Platelet Count 197 10^3/uL (130-400); RBC 4.38 10^6/uL (3.93-5.22); RDW 12.5 % (11.7-14.6); RDW-SD 41.9 fL; WBC 8.38 10^3/uL (4.4-10.8)
[2025-05-06 14:25] LABS: ALT 30 U/L (14-59); AST 23 U/L (15-37); Albumin 3.9 g/dL (3.4-5.0); Alkaline Phosphatase 101 U/L (46-116); Anion Gap 7.9 mmol/L (3-11); BUN 25 mg/dL (7-18); Bilirubin, Total 0.6 mg/dL (0.2-1.0); CO2 28.1 mmol/L (21.0-32.0); CREATININE 0.8 mg/dL (0.55-1.02); Calcium 9.2 mg/dL (8.5-10.1); Chloride 105 mmol/L (98-107); Estimated GFR 71.71 (mL/min/1.73m2); Glucose 91 mg/dL (74-106); Potassium 4.1 mmol/L (3.5-5.1); Sodium 141 mmol/L (136-145); Total Protein 7.9 g/dL (6.4-8.2)
--- NOTE | 2025-05-06 14:33 | W.ED.GENAD ---
Discharge Plan Disposition Patient Disposition: Home Condition: Stable Discharge Details Clinical Impression: Sternal fracture Primary Care Provider: Nish Vogel ED Provider: Kota Lewis Home Meds and New Rx's Prescriptions: New lidocaine 5 % adhesive patch,medicated 1 patch topical DAILY Qty: 30 0RF Rx Instructions: leave on most painful area for up to 12 hrs Continued lisinopril 20 MG tablet 20 mg PO DAILY Centrum Silver 1 EACH tablet 1 ea PO DAILY One-Per-Day [place]-3 1 EACH capsule,delayed release(DR/EC) 1 ea PO DAILY ibuprofen 200 mg tablet 600 mg PO Q6H PRN (Reason: pain) Qty: 30 0RF Discharge Instructions Additional Instructions: You have a nondisplaced fracture of your sternum. This should heal with time. You can take 1000 mg of acetaminophen every 6 hours as needed. Do not exceed 3000 mg in a 24-hour period. If pain is not improving in a week follow-up with your primary care provider. If you feel significantly more ill ot have severe worsening pain return to the emergency department for reevaluation. HPI General Mode of arrival: ambulatory. Date/Time Provider Initiated Documentation: 05/06/25 13:34. Limitations to Documentation: no limitations. Information obtained by: patient. History of Present Illness 84 year old F presents to the emergency department with the chief complaint of anterior chest and head pain s/p fall, described as moderate, Quality is described as aching, and is localized to the chest. Patient reports no radiation. Patient started experiencing this day(s) (3) and it has been constant. No relieving factors improve symptom(s), No exacerbating factors reported . Patient notes no other symptoms.. Patient did receive the following treatments prior to arrival, none Related Data Home Medications ?Medication ?Instructions ?Recorded ?Confirmed lisinopril 20 mg tablet 20 mg PO DAILY 06/24/15 05/06/25 imucaprb-kei-xkpja acid 0.4 1 ea PO DAILY 06/24/15 05/06/25 mg-lycopene 300 mcg-lutein 250 mcg tablet (Centrum Silver) omega-3 fatty acids-fish oil 684 1 ea PO DAILY 06/24/15 05/06/25 mg-1,200 mg capsule,delayed release (One-Per-Day [place]-3) ibuprofen 200 mg tablet 600 mg (3 x 200 mg) PO Q6H PRN 09/15/19 05/06/25 pain #30 tabs lidocaine 5 % topical patch 1 patch topical DAILY #30 ea 05/06/25 Previous Rx's ?Medication ?Instructions ?Recorded ibuprofen 200 mg tablet 600 mg (3 x 200 mg) PO Q6H PRN 09/15/19 pain #30 tabs lidocaine 5 % topical patch 1 patch topical DAILY #30 ea 05/06/25 Allergies Allergy/AdvReac Type Severity Reaction Status Date / Time Penicillins Allergy Intermediate Other (See Unverified 05/06/25 13:36 Comment) doxycycline monohydrate Allergy HIVES Unverified 05/06/25 13:36 (From Vibramycin) lactose AdvReac Mild GI upset Unverified 05/06/25 13:36 General Stated Complaint: Fall/Non TraumaCriteria SEBASTIAN: 3 Review of Systems All systems reviewed & are unremarkable except as noted in HPI and below Constitutional Constitutional: Denies chills, Denies fever(s) and Denies weakness Cardiovascular Cardiovascular: Reports chest pain and Denies dyspnea Respiratory Respiratory: Denies cough and Denies dyspnea Gastrointestinal Gastrointestinal: Denies abdominal pain, Denies nausea and Denies vomiting Neurologic Neurologic: Denies weakness Psychiatric Psychiatric: Denies depression Exam Const General: no acute distress Orientation: alert [facility] Head: normal to inspection Ears: external ears normal General nose exam: external nose normal Mouth: moist mucous membranes Eyes General: appearance normal, both eyes and all related structures Neck Neck: normal visual inspection Chest Chest: tenderness Resp Effort & Inspection: normal respiratory effort and able to speak in complete sentences Auscultation: clear to auscultation bilaterally Cardio Jugular venous pressure: no JVD Rate: regular rate Skin General skin exam: no rashes or lesions noted Neuro General: patient alert and patient oriented x3 Extrem General: normal to inspection Psych Mental Status: mental status grossly normal Course Vital Signs Vital signs: Vital Signs Temperature 36.6 C 05/06/25 13:33 Pulse 100 H 05/06/25 13:33 Respiratory Rate 18 05/06/25 13:33 Blood Pressure 154/93 H 05/06/25 13:33 Pulse Oximetry 98 05/06/25 13:33 Temperature 36.6 C 05/06/25 13:33 Pulse 100 H 05/06/25 13:33 Respiratory Rate 18 05/06/25 13:33 Blood Pressure 154/93 H 05/06/25 13:33 Pulse Oximetry 98 05/06/25 13:33 Oxygen Delivery Method Room Air 05/06/25 13:33 Oxygen Flow Rate 0 05/06/25 13:33 Pain Level 10 05/06/25 13:33 Lab/Test Results Lab/Test Results: Laboratory Tests Range/Units 05/06/25 13:55 WBC (4.4-10.8) 10^3/uL 8.38 RBC (3.93-5.22) 10^6/uL 4.38 Hgb (11.2-15.7) g/dL 13.2 Hct (36.0-46.0) % 40.1 MCV (80-95) fL 92 MCH (27.0-33.0) pg 30.1 MCHC (32.0-36.0) % 32.9 RDW (11.7-14.6) % 12.5 Plt Count (130-400) 10^3/uL 197 MPV (8.0-11.0) fL 10.3 Immature Gran % % 0.2 Neutrophils % % 68.0 Lymphocytes % % 19.2 Monocytes % % 9.1 Eosinophils % % 3.3 Basophils % % 0.2 Nucleated RBC % (0.0-0.3) % 0.0 Absolute Neutrophils (1.2-6.7) 10^3/uL 5.69 Absolute Lymphocytes (1.2-3.4) 10^3/uL 1.61 Absolute Monocytes (0.1-0.8) 10^3/uL 0.76 Absolute Eosinophils (0.0-0.7) 10^3/uL 0.28 Absolute Basophils (0.0-0.2) 10^3/uL 0.02 Sodium (136-145) mmol/L 141 Potassium (3.5-5.1) mmol/L 4.1 Chloride (98-107) mmol/L 105 Carbon Dioxide (21.0-32.0) mmol/L 28.1 Anion Gap (3-11) mmol/L 7.9 BUN (7-18) mg/dL 25 H Creatinine (0.55-1.02) mg/dL 0.8 Est GFR (CKD-EPI 2020) (mL/min/1.73m2) 71.71 Glucose (74-106) mg/dL 91 Calcium (8.5-10.1) mg/dL 9.2 Total Bilirubin (0.2-1.0) mg/dL 0.6 AST (15-37) U/L 23 ALT (14-59) U/L 30 Alkaline Phosphatase (46-116) U/L 101 Total Protein (6.4-8.2) g/dL 7.9 Albumin (3.4-5.0) g/dL 3.9 Medical Decision Making 84-year-old female with a history of hypertension comes in with anterior chest pain and also a headache after she fell 3 days ago. She says she was doing some gardening when she fell forward landing on her chest/was going up a hill. She did not lose consciousness. She has not had any vomiting, denies any abdominal or back pain. She is of she has anterior chest pain and also pain in the front of her head. She has no midline C-spine, T-spine or L-spine tenderness but does have left lateral neck tenderness. No signs of trauma to the head and she is oriented x 4. She is very tender in the anterior chest over the sternum. Suspect contusion versus fractures, will check basic labs and also obtain CT head and C-spine and CT chest to evaluate for possible rib versus sternal fracture. Head and C-spine negative, chest CT shows nondisplaced dental fracture. Has age-indeterminate fractures of her thoracic spine but has no back pain so I doubt these are acute. She is stable sitting in the bed reading newspaper in no distress. Given his nondisplaced stents for 3 days and she has no pericardial effusion on CT I feel she can be managed as an outpatient. She will follow-up with her PCP in a week if she is not improving and return precautions given Differential Diagnosis Differential Diagnosis: Fracture, contusion, TBI, concussion PFSH All Active Problems Sternal fracture (Acute) Aortic valve sclerosis (Acute) Osteoarthritis of left knee (Acute) Steroid injection: 05/25/2024 Fracture of fifth metatarsal bone of right foot (Acute) Degenerative disc disease (Acute) Muscle spasm (Acute) Corneal dystrophy (Chronic) GERD (gastroesophageal reflux disease) (Chronic) Hypertension (Chronic) Presence of right artificial knee joint (Acute 01/23/16) Hiatal hernia (Acute) Primary osteoarthritis of right knee (Acute 01/23/16) Dysphagia (Chronic) H/O surgical procedure (Chronic) a. Right TKR 01/23/2016 b. bilateral cataract surgery c. hysterectomy with bilateral salpingo-oophrectomy, as well as incidental appendectomy d. T&A e. gastroscopy with balloon dilatation as well as colonoscopy Social History Smoking/Tobacco Use Status: Never Smoking risk assessment performed?: Yes Alcohol Intake: never Drug use: Never Substance use type: does not use Housing: house Current gender identity: female Do you feel safe at home: Yes Do you feel safe in your relationship?: Yes
[2025-05-06] MEDS: Lidocaine 5% Patch 1 PATCH TP (15:42)
[2025-05-06 15:45] VITALS: BP 166/105; PULSE 76
[2025-05-06 15:51] LABS: Magnesium 1.9 mg/dL (1.8-2.4)
[2025-05-06 15:53] VITALS: BP 166/105; PULSE 76; TEMP 36.7
== END 2025-05-06 15:45 | disposition home or self-care (01) ==
PROVIDERS: Emergency Provider Emergency Medicine; PCP Student in an Organized Health Care Education/Training Program
DX: S22.20XA Unspecified fracture of sternum, initial encounter for closed fracture (principal); R51.9 Headache, unspecified; W19.XXXA Unspecified fall, initial encounter
CPT/HCPCS: 36415; 71250; 80053; 99284; 70450; 72125; 83735; 85025; J0131

== ENCOUNTER 2025-05-28 13:13 | Emergency (ER) | payer MEDICARE, SELFPAY ==
[2025-05-28 13:16] VITALS: BP 128/87; PULSE 100; RESP 18; TEMP 36.6; O2SAT 96
[2025-05-28 13:38] LABS: Abs Immature Grans 0.02 10^3/uL (0.0-0.06); HCT 34.8 % (36.0-46.0); HGB 11.3 g/dL (11.2-15.7); Immature Grans % 0.2 %; MCH 29.8 pg (27.0-33.0); MCHC 32.5 % (32.0-36.0); MCV 92 fL (80-95); MPV 10.6 fL (8.0-11.0); Platelet Count 195 10^3/uL (130-400); RBC 3.79 10^6/uL (3.93-5.22); RDW 12.8 % (11.7-14.6); RDW-SD 43.3 fL; WBC 8.03 10^3/uL (4.4-10.8)
--- NOTE | 2025-05-28 13:54 | DI.RAD_ITS ---
Exam(s) XR ANKLE RT COMPLETE EXAM: XR ANKLE RT COMPLETE CLINICAL HISTORY: pain, twist. TECHNIQUE: 2D digital imaging was performed. COMPARISON: No exams were available for comparison FINDINGS: 3 views There is mild soft tissue swelling on the medial aspect of the ankle but no evidence of acute fracture nor widening the ankle mortise. Talar dome unremarkable. Accessory ossicle is noted. Subjacent to the lateral malleolus. There are minimal degenerative changes. Phleboliths are incidentally noted anteriorly in the calf. IMPRESSION: No acute osseous findings in the ankle. DATA REPOSITORY: RADIATION DOSE DELIVERED:
--- NOTE | 2025-05-28 13:54 | DI.RAD_ITS ---
Exam(s) XR FOOT RT COMPLETE EXAM: XR FOOT RT COMPLETE CLINICAL HISTORY: pain, twist. TECHNIQUE: 2D digital imaging was performed. COMPARISON: CR XR FOOT RT COMPLETE from 10/07/2019 FINDINGS: 3 views No evidence of acute fracture nor diastasis of the Lisfranc joint. There are minimal degenerative changes in the great toe metatarsophalangeal joint. No pes planus. Bone density normal. No osseous lesions. No radiopaque foreign bodies. Minimal degenerative changes. IMPRESSION: No acute osseous findings in the right foot. DATA REPOSITORY: RADIATION DOSE DELIVERED:
[2025-05-28 13:55] LABS: ALT 25 U/L (14-59); AST 18 U/L (15-37); Albumin 3.7 g/dL (3.4-5.0); Alkaline Phosphatase 127 U/L (46-116); Anion Gap 8.1 mmol/L (3-11); BUN 25 mg/dL (7-18); Bilirubin, Total 0.7 mg/dL (0.2-1.0); C-Reactive Protein 3.75 mg/dL (<or=0.5); CO2 28.9 mmol/L (21.0-32.0); Calcium 9.1 mg/dL (8.5-10.1); Chloride 104 mmol/L (98-107); Estimated GFR 62.26 (mL/min/1.73m2); Glucose 105 mg/dL (74-106); Potassium 4.2 mmol/L (3.5-5.1); Sodium 141 mmol/L (136-145); Total Protein 7.3 g/dL (6.4-8.2)
--- NOTE | 2025-05-28 13:55 | DI.RAD_ITS ---
Exam(s) XR TIB/FIB RT EXAM: XR TIB/FIB RT CLINICAL HISTORY: pain, twist. TECHNIQUE: 2D digital imaging was performed. COMPARISON: No exams were available for comparison FINDINGS: Two views There is a right knee prosthesis which appears intact. There is no evidence of fracture of the tibia and fibula. Bone density normal. No osseous lesions. There is subcutaneous diffuse soft tissue swelling in the calf. Also noted are phleboliths anteriorly in the calf. There is no radiopaque foreign body. There is no gas in the soft tissues of the calf. IMPRESSION: No acute osseous findings in the right tibia and fibula. No obvious abnormality of the right knee prosthesis. DATA REPOSITORY: RADIATION DOSE DELIVERED:
[2025-05-28 14:50] VITALS: BP 142/68; PULSE 76; RESP 18; O2SAT 98
[2025-05-28] MEDS: Diph,Pertuss(Acell),Tet Vac/Pf 0.5 ML SYR IM (14:51)
--- NOTE | 2025-05-28 15:46 | ED.GENADUL_ITS ---
Discharge Plan Disposition Patient Disposition: Home Discharge Details Clinical Impression: Traumatic ecchymosis of right lower leg, Cellulitis, Blister, Strain of ankle, right Primary Care Provider: Nish Vogle ED Provider: Kacy Olson Home Meds and New Rx's Prescriptions: New cephalexin 500 mg capsule 500 mg PO Q6H 7 Days Qty: 28 0RF Continued lisinopril 20 MG tablet 20 mg PO DAILY Centrum Silver 1 EACH tablet 1 ea PO DAILY One-Per-Day [place]-3 1 EACH capsule,delayed release(DR/EC) 1 ea PO DAILY lidocaine 5 % adhesive patch,medicated 1 patch topical DAILY Qty: 30 0RF Rx Instructions: leave on most painful area for up to 12 hrs ibuprofen 200 mg tablet 600 mg PO Q6H PRN (Reason: pain) Qty: 30 0RF Discharge Instructions Additional Instructions: Elevate your leg as much as possible Soap and water once daily You may apply bacitracin or Neosporin topically Recheck on Saturday with primary care doctor May need surgical referral depending on how your wound is healing Take the antibiotic as prescribed Please return earlier should you have spreading redness fever worsening pain Also ordering an ultrasound of your right lower extremity, ultrasound will call you on Saturday please schedule your appointment Referrals: Nish Vogel [Primary Care Provider, Medicine] - 3 days Discharge Orders Other Ambulatory Orders: US lower extremity venous RT (STAT) Timeframe: 20250531 Facility: [facility] - Location: DIAGNOSTIC IMAGING Ordered By: Kacy Olson [facility] General Date/Time Provider Initiated Documentation: 05/28/25 13:19 . HPI Narrative: The patient is an 84-year-old female with hypertension who presents after twisting her ankle and falling 5 days ago. She reports significant ecchymosis, swelling, and a tender blister on her right lateral leg. No fever, chills, or coagulopathy history. Unsure of tetanus status. No enlarged laceration. Topical antibiotic ointment applied without improvement. Related Data Home Medications ?Medication ?Instructions ?Recorded ?Confirmed lisinopril 20 mg tablet 20 mg PO DAILY 06/24/1503/19 mlhlbyku-pvt-dotld acid 0.4 1 ea PO DAILY 06/24/1503/19 mg-lycopene 300 mcg-lutein 250 mcg tablet (Centrum Silver) omega-3 fatty acids-fish oil 684 1 ea PO DAILY 5 05/28/25 mg-1,200 mg capsule,delayed release (One-Per-Day [place]-3) ibuprofen 200 mg tablet 600 mg (3 x 200 mg) PO Q6H P RN 09/15/19 05/28/25 pain #30 tabs lidocaine 5 % topical patch 1 patch topical DAILY #30 ea 05/06/25 05/28/25 cephalexin 500 mg capsule 500 mg PO Q6H 7 days #28 cap s 05/28/25 Previous Rx's ?Medication ?Instructions ?Recorded ibuprofen 200 mg tablet 600 mg (3 x 200 mg) PO Q6H P RN 09/15/19 pain #30 tabs lidocaine 5 % topical patch 1 patch topical DAILY #30 ea 05/06/25 cephalexin 500 mg capsule 500 mg PO Q6H 7 days #28 cap s 05/28/25 Allergies Allergy/AdvReac Type Severity Reaction Status Date / Time Penicillins Allergy Intermediate Other (See Unverified 05/28/25 13:18 Comment) doxycycline monohydrate Allergy HIVES Unverified 05/28/25 13:18 (From Vibramycin) lactose AdvReac Mild GI upset Unverified 05/28/25 13:18 General Stated Complaint: Fall/Non TraumaCriteria SEBASTIAN: 3 Exam Narrative Exam Narrative: General Appearance: Alert and oriented. Vital signs: Within normal limits. HEENT: Pupils equal, round, reactive to light and accommodation. Respiratory: Within normal limits. Cardiovascular: No additional trauma to chest, abdomen, pelvis, or head. Back, Musculoskeletal: Tender throughout foot and ankle. No crepitus. Extremities: Ecchymosis from knee to feet. Distal pulses (DP and PT) and sensation intact. Skin: Warm and dry, no rash. Neurological: Normal. Course Vital Signs Vital signs: Vital Signs Temperature 36.6 C 05/28/25 13:16 Pulse 100 H 05/28/25 13:16 Respiratory Rate 18 05/28/25 13:16 Blood Pressure 128/87 05/28/25 13:16 Pulse Oximetry 96 05/28/25 13:16 Temperature 36.6 C 05/28/25 13:16 Pulse 76 05/28/25 14:50 Respiratory Rate 18 05/28/25 14:50 Blood Pressure 142/68 H 05/28/25 14:50 Blood Pressure Mean 92 05/28/25 14:50 Pulse Oximetry 98 05/28/25 14:50 Oxygen Delivery Method Room Air 05/28/25 14:50 Oxygen Flow Rate 0 05/28/25 14:50 Pain Level 8 05/28/25 13:16 Lab/Test Results Lab/Test Results: 05/28/25 14:30 Leg - Right Lower Wound Culture - Pending 05/28/25 14:30 Leg - Right Lower Gram Stain - Pending Laboratory Tests Range/Units 05/28/25 13:31 WBC (4.4-10.8) 10^3/uL 8.03 RBC (3.93-5.22) 10^6/uL 3.79 L Hgb (11.2-15.7) g/dL 11.3 Hct (36.0-46.0) % 34.8 L MCV (80-95) fL 92 MCH (27.0-33.0) pg 29.8 MCHC (32.0-36.0) % 32.5 RDW (11.7-14.6) % 12.8 Plt Count (130-400) 10^3/uL 195 MPV (8.0-11.0) fL 10.6 Immature Gran % % 0.2 Neutrophils % % 66.7 Lymphocytes % % 17.7 Monocytes % % 10.6 Eosinophils % % 4.4 Basophils % % 0.4 Nucleated RBC % (0.0-0.3) % 0.0 Absolute Neutrophils (1.2-6.7) 10^3/uL 5.36 Absolute Lymphocytes (1.2-3.4) 10^3/uL 1.42 Absolute Monocytes (0.1-0.8) 10^3/uL 0.85 H Absolute Eosinophils (0.0-0.7) 10^3/uL 0.35 Absolute Basophils (0.0-0.2) 10^3/uL 0.03 Sodium (136-145) mmol/L 141 Potassium (3.5-5.1) mmol/L 4.2 Chloride (98-107) mmol/L 104 Carbon Dioxide (21.0-32.0) mmol/L 28.9 Anion Gap (3-11) mmol/L 8.1 BUN (7-18) mg/dL 25 H Creatinine (0.55-1.02) mg/dL 0.9 Est GFR (CKD-EPI 2020) (mL/min/1.73m2) 62.26 Glucose (74-106) mg/dL 105 Calcium (8.5-10.1) mg/dL 9.1 Total Bilirubin (0.2-1.0) mg/dL 0.7 AST (15-37) U/L 18 ALT (14-59) U/L 25 Alkaline Phosphatase (46-116) U/L 127 H C-Reactive Protein (<or=0.5) mg/dL 3.75 H Total Protein (6.4-8.2) g/dL 7.3 Albumin (3.4-5.0) g/dL 3.7 Medical Decision Making X-rays of tib-fib, ankle, and foot show no fracture or gas in tissue. Labs with CRP mildly elevated at 3.75 the remainder of labs are not acutely abnormal CBC within normal limits Initial Assessment: 84-year-old female with history of hypertension presents with significant ecchymosis, swelling, and blister on right lateral leg following fall 5 days ago. Denies additional injuries, fever, chills, or history of coagulopathy. Unsure regarding tetanus status. No enlarged laceration. Applying topical antibiotic ointment without improvement Procedure: Incised and drained large blister on right lateral leg after cleansing. Obtained wound culture. Cleansed wound and applied dressing. ED Course: - X-rays of tib-fib, ankle, and foot show no fractures or gas in tissue, read by me. - Incised and drained blister after cleansing, obtained wound culture. - Cleansed and dressed wound. - Initiated Keflex for likely cellulitis. - Ordered outpatient ultrasound. - Low clinical suspicion for DVT or PE. - Reviewed return precautions. - Encouraged outpatient elevation and use of crutches. - Discharge vital stable. Final Assessment: Patient with right leg injury presenting with significant ecchymosis, swelling, and blister. X-rays show no fractures or gas. Blister incised and drained, wound culture obtained, cleansed and dressed. Initiated Keflex for likely cellulitis. Ordered outpatient ultrasound. Low clinical suspicion for DVT or PE. Discharge vital stable. Clinical Impression: - Right leg injury - Cellulitis Disposition: - Discharge - Follow-Up: Recheck on Saturday. DAVID [employer] Evaluation: - Number of Differential Diagnoses or Management Options: Cellulitis, DVT, PE - Amount and Complexity of Data Reviewed: X-rays, wound culture - Risk of Complication and Morbidity or Mortality: Low clinical suspicion for DVT or PE, managed cellulitis with antibiotics. PFSH All Active Problems Strain of ankle, right (Acute) Blister (Acute) Cellulitis (Acute) Traumatic ecchymosis of right lower leg (Acute) Cervical strain (Acute) Blunt head trauma (Acute) Sternal fracture (Acute) Aortic valve sclerosis (Acute) Osteoarthritis of left knee (Acute) Steroid injection: 05/25/2024 Fracture of fifth metatarsal bone of right foot (Acute) Degenerative disc disease (Acute) Muscle spasm (Acute) Corneal dystrophy (Chronic) GERD (gastroesophageal reflux disease) (Chronic) Hypertension (Chronic) Presence of right artificial knee joint (Acute 01/23/16) Hiatal hernia (Acute) Primary osteoarthritis of right knee (Acute 01/23/16) Dysphagia (Chronic) H/O surgical procedure (Chronic) a. Right TKR 01/23/2016 b. bilateral cataract surgery c. hysterectomy with bilateral salpingo-oophrectomy, as well as incidental appendectomy d. T&A e. gastroscopy with balloon dilatation as well as colonoscopy Social History Smoking/Tobacco Use Status: Never Smoking risk assessment performed?: Yes Alcohol Intake: never Drug use: Never Substance use type: does not use Housing: house Current gender identity: female Do you feel safe at home: Yes Do you feel safe in your relationship?: Yes
== END 2025-05-28 14:53 | disposition home or self-care (01) ==
PROVIDERS: Emergency Provider Physician Assistant; PCP Student in an Organized Health Care Education/Training Program
DX: S80.11XA Contusion of right lower leg, initial encounter (principal); L03.115 Cellulitis of right lower limb; S96.911A Strain of unspecified muscle and tendon at ankle and foot level, right foot, initial encounter; S80.821A Blister (nonthermal), right lower leg, initial encounter; I10 Essential (primary) hypertension; Z79.899 Other long term (current) drug therapy; W18.30XA Fall on same level, unspecified, initial encounter; Y93.01 Activity, walking, marching and hiking; Y92.018 Other place in single-family (private) house as the place of occurrence of the external cause; Z23 Encounter for immunization
CPT/HCPCS: 80053; 90471; 90715; 99284; 73590; 73610; 73630; 85025; 86140; 87070; 87205

== ENCOUNTER 2025-05-31 11:40 | Emergency (ER) | payer MEDICARE, SELFPAY ==
[2025-05-31 11:58] VITALS: BP 112/83; PULSE 83; RESP 16; TEMP 36.6; O2SAT 97
--- NOTE | 2025-05-31 13:14 | NUR.NOTE ---
Patient had dressing done and supplies given to take home for continual dressing management. Extensive education was given in simple terms for patient
[2025-05-31 13:17] VITALS: BP 118/80; PULSE 72; RESP 14; TEMP 36.6; O2SAT 98
--- NOTE | 2025-05-31 16:32 | W.ED.GENAD ---
Discharge Plan Disposition Patient Disposition: Home Condition: Stable Discharge Details Clinical Impression: Traumatic ecchymosis of right lower leg Primary Care Provider: Nish Vogel ED Provider: Jayson Hargrove Home Meds and New Rx's Prescriptions: No Action lisinopril 20 MG tablet 20 mg PO DAILY Centrum Silver 1 EACH tablet 1 ea PO DAILY One-Per-Day [place]-3 1 EACH capsule,delayed release(DR/EC) 1 ea PO DAILY lidocaine 5 % adhesive patch,medicated 1 patch topical DAILY Qty: 30 0RF Rx Instructions: leave on most painful area for up to 12 hrs ibuprofen 200 mg tablet 600 mg PO Q6H PRN (Reason: pain) Qty: 30 0RF cephalexin 500 mg capsule 500 mg PO Q6H 7 Days Qty: 28 0RF Discharge Instructions Additional Instructions: ultrasound was negative for blood clot today area appears to be healing continue local wound care, elevation and rest as much as possible apply non -stick dressings only Discharge Data Discharge Date/Time-TO BE ENTERED AT DEPARTURE: 05/31/25 13:18 HPI General Date/Time Provider Initiated Documentation: 05/31/25 12:32. Limitations to Documentation: no limitations. Information obtained by: patient and old records reviewed. HPI Narrative: 84-year-old female presents for reevaluation of right lower extremity injury. The patient had an injury last week and was evaluated by the emergency department. She was sent for an ultrasound outpatient today. His ultrasound did not demonstrate a DVT. The patient reports improvement in the discoloration of her leg and the overall swelling but still reports pain. Related Data Home Medications ?Medication ?Instructions ?Recorded ?Confirmed lisinopril 20 mg tablet 20 mg PO DAILY 06/24/15 05/31/25 asucyzrx-hoi-gvriq acid 0.4 1 ea PO DAILY 06/24/15 05/31/25 mg-lycopene 300 mcg-lutein 250 mcg tablet (Centrum Silver) omega-3 fatty acids-fish oil 684 1 ea PO DAILY 06/24/15 05/31/25 mg-1,200 mg capsule,delayed release (One-Per-Day [place]-3) ibuprofen 200 mg tablet 600 mg (3 x 200 mg) PO Q6H PRN 09/15/19 05/31/25 pain #30 tabs lidocaine 5 % topical patch 1 patch topical DAILY #30 ea 05/06/25 05/31/25 cephalexin 500 mg capsule 500 mg PO Q6H 7 days #28 caps 05/28/25 05/31/25 Previous Rx's ?Medication ?Instructions ?Recorded ibuprofen 200 mg tablet 600 mg (3 x 200 mg) PO Q6H PRN 09/15/19 pain #30 tabs lidocaine 5 % topical patch 1 patch topical DAILY #30 ea 05/06/25 cephalexin 500 mg capsule 500 mg PO Q6H 7 days #28 caps 05/28/25 Allergies Allergy/AdvReac Type Severity Reaction Status Date / Time Penicillins Allergy Intermediate Other (See Unverified 05/31/25 12:02 Comment) doxycycline monohydrate Allergy HIVES Unverified 05/31/25 12:02 (From Vibramycin) lactose AdvReac Mild GI upset Unverified 05/31/25 12:02 General Stated Complaint: Orthopedic SEBASTIAN: 4 Exam Narrative Exam Narrative: Review of Systems: All systems reviewed & are unremarkable except as noted in HPI and below Well-developed, no acute distress NCAT Right lower extremity with diffuse bruising noted, there is a blistered area that does not show any signs of infection, the 4 x 4 she had put over it was a little bit attached but otherwise seems to be healing appropriately Course Vital Signs Vital signs: Vital Signs Temperature 36.6 C 05/31/25 11:58 Pulse 83 05/31/25 11:58 Respiratory Rate 16 05/31/25 11:58 Blood Pressure 112/83 05/31/25 11:58 Pulse Oximetry 97 05/31/25 11:58 Temperature 36.6 C 05/31/25 13:17 Temperature Source Oral 05/31/25 11:58 Pulse 72 05/31/25 13:17 Respiratory Rate 14 05/31/25 13:17 Blood Pressure 118/80 05/31/25 13:17 Pulse Oximetry 98 05/31/25 13:17 Pain Level 8 05/31/25 11:58 Medical Decision Making Evaluation of the right lower extremity injury. At this time there is no sign of a DVT and healing seems to be taking place in appropriate steps. There is no signs of infection. Recommend continued treatment as Previously prescribed. PFSH All Active Problems Localized swelling of right lower extremity (Acute) Strain of ankle, right (Acute) Blister (Acute) Cellulitis (Acute) Traumatic ecchymosis of right lower leg (Acute) Cervical strain (Acute) Blunt head trauma (Acute) Sternal fracture (Acute) Aortic valve sclerosis (Acute) Osteoarthritis of left knee (Acute) Steroid injection: 05/25/2024 Fracture of fifth metatarsal bone of right foot (Acute) Degenerative disc disease (Acute) Muscle spasm (Acute) Corneal dystrophy (Chronic) GERD (gastroesophageal reflux disease) (Chronic) Hypertension (Chronic) Presence of right artificial knee joint (Acute 01/23/16) Hiatal hernia (Acute) Primary osteoarthritis of right knee (Acute 01/23/16) Dysphagia (Chronic) H/O surgical procedure (Chronic) a. Right TKR 01/23/2016 b. bilateral cataract surgery c. hysterectomy with bilateral salpingo-oophrectomy, as well as incidental appendectomy d. T&A e. gastroscopy with balloon dilatation as well as colonoscopy Social History Smoking/Tobacco Use Status: Never Smoking risk assessment performed?: Yes Alcohol Intake: never Drug use: Never Substance use type: does not use Housing: house Current gender identity: female Do you feel safe at home: Yes Do you feel safe in your relationship?: Yes
== END 2025-05-31 13:18 | disposition home or self-care (01) ==
PROVIDERS: Emergency Provider Emergency Medicine; PCP Student in an Organized Health Care Education/Training Program
DX: S80.11XD Contusion of right lower leg, subsequent encounter (principal); I10 Essential (primary) hypertension; X58.XXXD Exposure to other specified factors, subsequent encounter
CPT/HCPCS: 99282; 93971

== ENCOUNTER 2025-05-31 12:19 | Outpatient (CLI) | payer MEDICARE, SELFPAY ==
--- NOTE | 2025-05-31 10:45 | DI.US_ITS ---
Exam(s) US LOWER EXTREMITY VENOUS RT EXAM: US LOWER EXTREMITY VENOUS RT CLINICAL HISTORY: Right leg swelling, R22.41 TECHNIQUE: Grayscale, color, and doppler imaging of the deep venous system of the right lower extremity was performed. COMPARISON: US US ECHOCARDIOGRAM from 10/30/2024 FINDINGS: There is no evidence of intraluminal thrombus and there is normal compression and augmentation demonstrated within the common femoral vein, femoral vein, and popliteal vein. In the ipsilateral calf the interrogated veins also exhibit normal compression/ augmentation properties. The ipsilateral saphenofemoral junction is patent. IMPRESSION: 1. No evidence of DVT in the right lower extremity. DATA REPOSITORY:
== END 2025-05-31 12:39 ==
LOC: DI 12:19
PROVIDERS: PCP Student in an Organized Health Care Education/Training Program; Visit Provider Physician Assistant
DX: R22.41 Localized swelling, mass and lump, right lower limb (principal)
CPT/HCPCS: 93971

== ENCOUNTER 2025-06-30 11:15 | Outpatient (CLI) | payer MEDICARE, SELFPAY ==
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
== END 2025-06-30 11:35 ==
PROVIDERS: PCP Student in an Organized Health Care Education/Training Program; Visit Provider Student in an Organized Health Care Education/Training Program
DX: S81.801A Unspecified open wound, right lower leg, initial encounter (principal); X58.XXXA Exposure to other specified factors, initial encounter
CPT/HCPCS: 73590

== ENCOUNTER 2025-06-30 13:57 | Outpatient (REF) | payer MEDICARE, SELFPAY ==
[2025-06-30 16:05] LABS: Abs Immature Grans 0.01 10^3/uL (0.0-0.06); HCT 39.0 % (36.0-46.0); HGB 12.4 g/dL (11.2-15.7); Immature Grans % 0.2 %; MCH 29.7 pg (27.0-33.0); MCHC 31.8 % (32.0-36.0); MCV 93 fL (80-95); MPV 11.0 fL (8.0-11.0); Platelet Count 184 10^3/uL (130-400); RBC 4.18 10^6/uL (3.93-5.22); RDW 13.3 % (11.7-14.6); RDW-SD 46.3 fL; WBC 6.06 10^3/uL (4.4-10.8)
[2025-06-30 16:10] LABS: Anion Gap 7.5 mmol/L (3-11); BUN 20 mg/dL (7-18); CO2 29.5 mmol/L (21.0-32.0); Calcium 9.2 mg/dL (8.5-10.1); Chloride 105 mmol/L (98-107); Estimated GFR 71.27 (mL/min/1.73m2); Glucose 96 mg/dL (74-106); Potassium 4.6 mmol/L (3.5-5.1); Sodium 142 mmol/L (136-145)
== END 2025-06-30 13:58 | disposition home or self-care (01) ==
LOC: NCHCN 13:57
PROVIDERS: PCP Student in an Organized Health Care Education/Training Program; Visit Provider Student in an Organized Health Care Education/Training Program
DX: S81.801A Unspecified open wound, right lower leg, initial encounter (principal); B95.2 Enterococcus as the cause of diseases classified elsewhere; B96.89 Other specified bacterial agents as the cause of diseases classified elsewhere; X58.XXXA Exposure to other specified factors, initial encounter
CPT/HCPCS: 80048; 87077; 85025; 87070; 87186; 87205

== ENCOUNTER → 2025-07-13 08:58 | Outpatient (BNVA) | payer MEDICARE, SELFPAY | PROVIDERS: PCP Student in an Organized Health Care Education/Training Program; Referring Provider Student in an Organized Health Care Education/Training Program; Visit Provider Physical Therapy Assistant | DX: S81.801D Unspecified open wound, right lower leg, subsequent encounter (principal); W22.8XXD Striking against or struck by other objects, subsequent encounter | CPT/HCPCS: 97597 ==

== ENCOUNTER → 2025-07-16 07:29 | Outpatient (BNVA) | payer MEDICARE, SELFPAY | PROVIDERS: PCP Student in an Organized Health Care Education/Training Program; Referring Provider Student in an Organized Health Care Education/Training Program; Visit Provider Physical Therapy Assistant | DX: S81.801D Unspecified open wound, right lower leg, subsequent encounter (principal); X58.XXXD Exposure to other specified factors, subsequent encounter | CPT/HCPCS: 99214 ==

== ENCOUNTER → 2025-07-19 09:39 | Outpatient (BNVA) | payer MEDICARE, SELFPAY | PROVIDERS: PCP Student in an Organized Health Care Education/Training Program; Referring Provider Student in an Organized Health Care Education/Training Program; Visit Provider Surgery | DX: Z51.89 Encounter for other specified aftercare (principal); S81.801A Unspecified open wound, right lower leg, initial encounter; X58.XXXA Exposure to other specified factors, initial encounter | CPT/HCPCS: NC OV ==

== ENCOUNTER → 2025-07-22 10:05 | Outpatient (BNVA) | payer MEDICARE, SELFPAY | PROVIDERS: PCP Student in an Organized Health Care Education/Training Program; Referring Provider Student in an Organized Health Care Education/Training Program; Visit Provider Physical Therapy Assistant | DX: S81.801D Unspecified open wound, right lower leg, subsequent encounter (principal); X58.XXXD Exposure to other specified factors, subsequent encounter; R22.41 Localized swelling, mass and lump, right lower limb | CPT/HCPCS: 97607 ==

== ENCOUNTER → 2025-07-27 13:17 | Outpatient (BNVA) | payer MEDICARE, SELFPAY | PROVIDERS: PCP Student in an Organized Health Care Education/Training Program; Referring Provider Student in an Organized Health Care Education/Training Program; Visit Provider Surgery | DX: Z51.89 Encounter for other specified aftercare (principal); S81.801A Unspecified open wound, right lower leg, initial encounter | CPT/HCPCS: 97607 ==

== ENCOUNTER 2025-07-30 05:30 | Outpatient (CLI) | payer MEDICARE, SELFPAY ==
--- NOTE | 2025-07-30 06:15 | DI.CT_ITS ---
Exam(s) CT LOWER EXTREMITY RT W EXAM: CT LOWER EXTREMITY RT W CLINICAL HISTORY: Traumatic Wound, r/o fluid collection,. TECHNIQUE: Imaging Protocol: Axial computed tomography images with coronal and sagittal reformatted images were created and reviewed. CONTRAST MATERIAL: Intravenous: Omnipaque 350 Contrast volume:100 ml Contrast route:IV - COMPARISON: CR XR FOOT RT COMPLETE from 05/28/2025 CR XR TIB/FIB RT from 05/28/2025 CR XR ANKLE RT COMPLETE from 05/28/2025 CR XR TIB/FIB RT from 06/30/2025 FINDINGS: Bones: There is no evidence of fracture or dislocation. No osteomyelitic changes are identified. No lytic or sclerotic lesions are identified. There is a knee prosthesis which creates artifact. Joints: Knee prosthesis.. The ankle joint and foot are unremarkable. Soft Tissues: Large open wound is noted at the antral lateral aspect of the distal 3rd of the lower leg. There is a fluid collection beneath this area measuring roughly 11 cm in length by 1.8 cm transverse by 1.6 cm AP. It lies superficial to the muscles. There are no air bubbles within the collection. The findings could represent fluid collection versus abscess. Mild generalized edema is noted in the subcutaneous fat greater in the anterior and lateral subcutaneous fat. There are mild Krista dilated venous varicosities in the lower leg. There are few scattered calcifications. The arteries appear patent. No intramuscular hematoma or fluid collection. IMPRESSION: Large open wound in the anterolateral lower leg. Subjacent fluid collection versus abscess measuring roughly 11 cm in length. No bony abnormality or muscular abnormality is visible. RADIATION DOSE DELIVERED: 382.92mGy.cm Total DLP DATA REPOSITORY: All CT scans at this facility are submitted to the National Radiology Data Registry (NRDR) Dose Index Registry (DIR) with the [employer] ([employer]). RADIATION OPTIMIZATION: All CT scans at this facility use at least one of these dose optimization techniques: automated exposure control; mA and/or kV adjustment per patient size (includes targeted exams where dose is matched to clinical indication); or iterative reconstruction.
[2025-07-30] MEDS: Omnipaque 350 MG/ML 500 ML BTL-Imaging package IJ (12:13)
[2025-07-30] MEDS: Normal Saline - Diluent 50 ML VIAL IJ (12:14)
[2025-07-30] MEDS: Normal Saline Flush 10 ML SYR IVP (12:15)
== END 2025-07-30 05:50 ==
LOC: DI 05:30
PROVIDERS: PCP Student in an Organized Health Care Education/Training Program; Visit Provider Physical Therapy Assistant
DX: S81.801A Unspecified open wound, right lower leg, initial encounter (principal); X58.XXXA Exposure to other specified factors, initial encounter
CPT/HCPCS: 73701

== ENCOUNTER → 2025-08-02 10:15 | Outpatient (BNVA) | payer MEDICARE, SELFPAY | PROVIDERS: PCP Student in an Organized Health Care Education/Training Program; Referring Provider Student in an Organized Health Care Education/Training Program; Visit Provider Surgery | DX: S81.801D Unspecified open wound, right lower leg, subsequent encounter (principal); X58.XXXD Exposure to other specified factors, subsequent encounter | CPT/HCPCS: 97607 ==

== ENCOUNTER → 2025-08-05 12:47 | Outpatient (BNVA) | payer MEDICARE, SELFPAY | PROVIDERS: PCP Student in an Organized Health Care Education/Training Program; Referring Provider Student in an Organized Health Care Education/Training Program; Visit Provider Surgery | DX: S81.801D Unspecified open wound, right lower leg, subsequent encounter (principal); X58.XXXD Exposure to other specified factors, subsequent encounter | CPT/HCPCS: 97607 ==

== ENCOUNTER → 2025-08-09 11:08 | Outpatient (BNVA) | payer MEDICARE, SELFPAY | PROVIDERS: PCP Student in an Organized Health Care Education/Training Program; Referring Provider Student in an Organized Health Care Education/Training Program; Visit Provider Surgery | DX: S81.801D Unspecified open wound, right lower leg, subsequent encounter (principal); X58.XXXD Exposure to other specified factors, subsequent encounter | CPT/HCPCS: 97607 ==

== ENCOUNTER → 2025-08-12 09:23 | Outpatient (BNVA) | payer MEDICARE, SELFPAY | PROVIDERS: PCP Student in an Organized Health Care Education/Training Program; Referring Provider Student in an Organized Health Care Education/Training Program; Visit Provider Surgery | DX: S81.801D Unspecified open wound, right lower leg, subsequent encounter (principal); X58.XXXD Exposure to other specified factors, subsequent encounter | CPT/HCPCS: 97607 ==

== ENCOUNTER → 2025-08-19 14:36 | Outpatient (BNVA) | payer MEDICARE, SELFPAY | PROVIDERS: PCP Student in an Organized Health Care Education/Training Program; Referring Provider Student in an Organized Health Care Education/Training Program; Visit Provider Surgery | DX: S81.802D Unspecified open wound, left lower leg, subsequent encounter (principal); X58.XXXD Exposure to other specified factors, subsequent encounter | CPT/HCPCS: 97607 ==

== ENCOUNTER → 2025-08-26 10:48 | Outpatient (BNVA) | payer MEDICARE, SELFPAY | PROVIDERS: PCP Student in an Organized Health Care Education/Training Program; Referring Provider Student in an Organized Health Care Education/Training Program; Visit Provider Surgery | DX: S81.801D Unspecified open wound, right lower leg, subsequent encounter (principal); X58.XXXD Exposure to other specified factors, subsequent encounter | CPT/HCPCS: 97607 ==

== ENCOUNTER → 2025-09-02 12:37 | Outpatient (BNVA) | payer MEDICARE, SELFPAY | PROVIDERS: PCP Student in an Organized Health Care Education/Training Program; Referring Provider Student in an Organized Health Care Education/Training Program; Visit Provider Surgery | DX: S81.801D Unspecified open wound, right lower leg, subsequent encounter (principal); X58.XXXD Exposure to other specified factors, subsequent encounter | CPT/HCPCS: 97607 ==

== ENCOUNTER → 2025-09-09 14:34 | Outpatient (BNVA) | payer MEDICARE, SELFPAY | PROVIDERS: PCP Student in an Organized Health Care Education/Training Program; Referring Provider Student in an Organized Health Care Education/Training Program; Visit Provider Physical Therapy Assistant | DX: S81.801D Unspecified open wound, right lower leg, subsequent encounter (principal); X58.XXXD Exposure to other specified factors, subsequent encounter | CPT/HCPCS: 99212 ==

== ENCOUNTER 2025-09-09 19:18 | Outpatient (REF) | payer MEDICARE, SELFPAY ==
[2025-09-09 19:21] LABS: Glucose Negative (Negative)
[2025-09-09 19:35] LABS: C & S Indicated? No; RBC Negative HPF (0-2); WBC 0-2 HPF (0-5)
== END 2025-09-09 19:19 | disposition home or self-care (01) ==
LOC: NCHCN 19:18
PROVIDERS: PCP Student in an Organized Health Care Education/Training Program; Visit Provider Student in an Organized Health Care Education/Training Program
DX: R30.0 Dysuria (principal)
CPT/HCPCS: 81003; 81015